=== PATIENT | female | born 1960 | race Caucasian/White ===

== ENCOUNTER 2016-07-11 15:40 | Emergency (ER) | payer OTHER ==
--- NOTE | 2016-07-11 15:51 | ED ---
General Adult HPI - General Stated complaint: Hypotension Time Seen by Provider: 07/11/16 15:43 Source: RN notes reviewed, old records reviewed - History of Present Illness Initial comments: This is a 56-year-old female to the ER for evaluation. This patient presents today for evaluation of syncopal event. Patient felt weak and dizzy lightheaded and passed out. Patient has a medical history of high blood pressure.. No other medical complaints. Patient has donated plasma 3 times in last 2 weeks. Patient did donate plasma 2 hours prior to arrival. Patient states she is a little lightheaded after donating but otherwise felt fine, has been drinking and hydrating appropriately especially overnight. Patient states she has no chest pain or shortness of breath to still feels a little dizzy at this time. No headaches. No injury from syncope event - Related Data Home Medications Medication Instructions Recorded Confirmed Atenolol 25 mg PO QAM 01/19/15 07/11/16 Lisinopril-Hctz 20-12.5 mg 1 tab PO QAM 01/19/15 07/11/16 [Zestoretic 20-12.5] Sertraline HCl [Zoloft] 200 mg PO QAM 01/19/15 07/11/16 traZODone HCL 50 mg PO QAM 01/19/15 07/11/16 Aspirin EC [Ecotrin Low Dose] 81 mg PO QAM 07/11/16 07/11/16 Calcium Carbonate/Vitamin D3 1 tab PO DAILY 07/11/16 07/11/16 [Calcium 600-Vit D3 400 Tablet] Fluticasone Nasal Imboden [Flonase 2 spr EA NOSTRIL DAILY PRN 07/11/16 07/11/16 Nasal Imboden] Gabapentin [Neurontin] 400 mg PO QID 07/11/16 07/11/16 Ibuprofen [Motrin] 600 mg PO TID PRN 07/11/16 07/11/16 Loratadine [Claritin] 10 mg PO DAILY PRN 07/11/16 07/11/16 Multivitamins, Thera [Multivitamin 1 tab PO DAILY 07/11/16 07/11/16 (formulary)] traZODone HCL 100 mg PO HS 07/11/16 07/11/16 Allergies Allergy/AdvReac Type Severity Reaction Status Date / Time atropine sulfate Allergy Rash/Hives Verified 07/11/16 16:16 [From Lomotil] diphenoxylate HCl Allergy Rash/Hives Verified 07/11/16 16:16 [From Lomotil] Review of Systems ROS Statement: Those systems with pertinent positive or pertinent negative responses have been documented in the HPI. ROS Other: All systems not noted in ROS Statement are negative. Past Medical History Past Medical History: Hypertension Additional Past Medical History / Comment(s): pulmonary htn, depression History of Any Multi-Drug Resistant Organisms: None Reported Past Surgical History: Section Past Psychological History: Anxiety, Depression Smoking Status: Current every day smoker Past Alcohol Use History: None Reported Past Drug Use History: None Reported General Exam General appearance: alert, in no apparent distress Head exam: Present: atraumatic, normocephalic, normal inspection Eye exam: Present: normal appearance, PERRL, EOMI. Absent: scleral icterus, conjunctival injection, periorbital swelling ENT exam: Present: normal exam, mucous membranes moist Neck exam: Present: normal inspection. Absent: tenderness, meningismus, lymphadenopathy Respiratory exam: Present: normal lung sounds bilaterally. Absent: respiratory distress, wheezes, rales, rhonchi, stridor Cardiovascular Exam: Present: regular rate, normal rhythm, normal heart sounds. Absent: systolic murmur, diastolic murmur, rubs, gallop, clicks GI/Abdominal exam: Present: soft, normal bowel sounds. Absent: distended, tenderness, guarding, rebound, rigid Extremities exam: Present: normal inspection, full ROM, normal capillary refill. Absent: tenderness, pedal edema, joint swelling, calf tenderness Back exam: Present: normal inspection Neurological exam: Present: alert, oriented X3, CN II-XII intact Psychiatric exam: Present: normal affect, normal mood Skin exam: Present: warm, dry, intact, normal color. Absent: rash Course Vital Signs 07/11/16 07/11/16 15:48 16:46 Temperature 97.9 F 98.2 F Pulse Rate 58 L 62 Respiratory 18 16 Rate Blood Pressure 101/59 103/59 O2 Sat by Pulse 98 95 Oximetry EKG Findings - EKG Comments: EKG Findings:: The EKG shows sinus rhythm rate of 60, ND 120, QRS I4, QTC 448 Medical Decision Making - Medical Decision Making 56 female here for evaluation of syncopal event. No chest patient was of breath or bowel pain. Patient did donate plasma 2 in the last 2 weeks. He felt lightheaded prior to passing out. At this time feels normal. Patient can be discharged home - Lab Data Lab Results 07/11/16 Range/Units 15:55 POC Glucose (mg/dL) 191 H (75-99) mg/dL POC Glu Assistant To [employer] Grace De Los Santos Disposition Clinical Impression: Orthostatic hypotension, Dehydration Disposition: HOME SELF-CARE Condition: Good Instructions: Dizziness (ED) Referrals: Jade Lockett MD [Primary Care Provider] - 1-2 days
[2016-07-11 16:26] LABS: Glucose,Whole Blood 191 mg/dL (75-99)
[2016-07-11 16:46] VITALS: BP 103/59; PULSE 62; RESP 16; TEMP 98.2
== END 2016-07-11 16:48 | disposition home or self-care (01) ==
LOC: EC 15:40
DX: I95.1 Orthostatic hypotension (principal); E86.0 Dehydration; I10 Essential (primary) hypertension; F32.9 Major depressive disorder, single episode, unspecified; F17.200 Nicotine dependence, unspecified, uncomplicated; Z88.8 Allergy status to other drugs, medicaments and biological substances; Z79.82 Long term (current) use of aspirin; Z79.899 Other long term (current) drug therapy
CPT/HCPCS: 36415; 93005; 99285

== ENCOUNTER → 2016-10-26 | Outpatient (CLI) | payer OTHER ==
[2016-10-26 11:37] LABS: CH 34.2; CHCM 36.8; HCT 38.1 % (34.0-46.0); HDW 2.37; HGB 13.9 gm/dL (11.4-16.0); MCH 34.1 pg (25.0-35.0); MCHC 36.6 g/dL (31.0-37.0); MCV 93.4 fL (80.0-100.0); Mean Platelet Volume 7.3; RBC 4.08 m/uL (3.80-5.40); RDW 13.2 % (11.5-15.5); WBC 6.3 k/uL (3.8-10.6)
[2016-10-26 11:55] LABS: Glucose 87 mg/dL (74-99); Total Protein 6.1 g/dL (6.3-8.2)
[2016-10-26 11:56] LABS: ALT 27 U/L (9-52); AST 24 U/L (14-36); Alkaline Phosphatase 82 U/L (38-126); Anion Gap 7 mmol/L; Blood Urea Nitrogen 4 mg/dL (7-17); Calcium 8.9 mg/dL (8.4-10.2); Carbon Dioxide 26 mmol/L (22-30); Chloride 93 mmol/L (98-107); Cholesterol 169 mg/dL (<200); HDL Cholesterol 39 mg/dL (40-60); Non-African American GFR(MDRD) >60 (>60 ml/min/1.73 sqM); Potassium 3.7 mmol/L (3.5-5.1); Sodium 126 mmol/L (137-145); Total Bilirubin 0.3 mg/dL (0.2-1.3)
== END | disposition home or self-care (01) ==
LOC: LABWHC1 11:09
PROVIDERS: ATTEND Psychiatry & Neurology Psychiatry
DX: E78.5 Hyperlipidemia, unspecified (principal); E03.9 Hypothyroidism, unspecified; I10 Essential (primary) hypertension
CPT/HCPCS: 36415; 80053; 80061; 84439; 84443; 85027

== ENCOUNTER → 2017-01-06 | Outpatient (CLI) | payer OTHER ==
[2017-01-06 13:29] LABS: Potassium 4.4 mmol/L (3.5-5.1)
== END | disposition home or self-care (01) ==
LOC: LABWHC1 12:25
PROVIDERS: ATTEND Psychiatry & Neurology Psychiatry
DX: E87.8 Other disorders of electrolyte and fluid balance, not elsewhere classified (principal)
CPT/HCPCS: 36415; 80051

== ENCOUNTER → 2017-03-25 | Outpatient (CLI) | payer OTHER ==
[2017-03-25 13:58] LABS: Anion Gap 9 mmol/L; Blood Urea Nitrogen 8 mg/dL (7-17); Calcium 9.5 mg/dL (8.4-10.2); Carbon Dioxide 28 mmol/L (22-30); Chloride 93 mmol/L (98-107); Glucose 91 mg/dL (74-99); Potassium 4.2 mmol/L (3.5-5.1); Sodium 130 mmol/L (137-145)
== END | disposition home or self-care (01) ==
LOC: LABWHC1 13:28
PROVIDERS: ATTEND Psychiatry & Neurology Psychiatry
DX: F31.60 Bipolar disorder, current episode mixed, unspecified (principal); Z79.899 Other long term (current) drug therapy
CPT/HCPCS: 36415; 80048

== ENCOUNTER 2017-07-13 11:03 | Inpatient (IN) | payer OTHER ==
[2017-07-13] MEDS ORDERED: DIPH,PERTUS(ACELL)TETVAC-LF 0.5 ML VIAL IM ONE (11:20)
--- NOTE | 2017-07-13 11:39 | ED ---
Dizziness HPI - General Chief Complaint: Dizziness Stated Complaint: Fall Time Seen by Provider: 07/13/17 11:03 Source: patient, RN notes reviewed Mode of arrival: EMS Limitations: no limitations - History of Present Illness Initial Comments: This is a 57-year-old female who states she was walking her Chihuahua when she became dizzy and tripped over the lesion. She fell on the ground struck her face left wrist she had no loss of consciousness but she complains some facial pain and now some posterior neck pain. She was brought in by EMS with a cervical collar no backboard. She denies any back pain abdominal pain pain to the other extremities except for the left wrist where she has an abrasion but full range of motion and she denies any bony tenderness. She has a history of pulmonary hypertension. She was noted have a glucose of 120+ a single PVC and her monitor. She does states she did not eat breakfast this morning MD Complaint: dizziness, other - Related Data Home Medications Medication Instructions Recorded Confirmed Atenolol 25 mg PO QAM 01/19/15 07/13/17 Lisinopril-Hctz 20-12.5 mg 1 tab PO QAM 01/19/15 07/13/17 [Zestoretic 20-12.5] Sertraline HCl [Zoloft] 200 mg PO QAM 01/19/15 07/13/17 Aspirin EC [Ecotrin Low Dose] 81 mg PO DAILY 07/11/16 07/13/17 Loratadine [Claritin] 10 mg PO DAILY PRN 07/11/16 07/13/17 traZODone HCL 100 mg PO HS 07/11/16 07/13/17 Ascorbic Acid [Vitamin C] 1,000 mg PO DAILY 07/13/17 07/13/17 Betamethasone Dipropionate 1 applic TOPICAL DAILY PRN 07/13/17 07/13/17 [Betamethasone Dipropionate 0.05%] Citalopram Hydrobromide [CeleXA] 40 mg PO DAILY 07/13/17 07/13/17 Diazepam [Valium] 5 mg PO BID@1200,2100 07/13/17 07/13/17 Ferrous Sulfate [Feosol] 325 mg PO DAILY 07/13/17 07/13/17 Gabapentin [Neurontin] 800 mg PO TID 07/13/17 07/13/17 Ibuprofen [Motrin] 800 mg PO TID PRN 07/13/17 07/13/17 Lurasidone [Latuda] 80 mg PO DAILY 07/13/17 07/13/17 Allergies Allergy/AdvReac Type Severity Reaction Status Date / Time atropine sulfate Allergy Rash/Hives Verified 07/13/17 12:18 [From Lomotil] diphenoxylate HCl Allergy Rash/Hives Verified 07/13/17 12:18 [From Lomotil] Review of Systems ROS Statement: Those systems with pertinent positive or pertinent negative responses have been documented in the HPI. ROS Other: All systems not noted in ROS Statement are negative. Past Medical History Past Medical History: Hypertension Additional Past Medical History / Comment(s): pulmonary htn, depression History of Any Multi-Drug Resistant Organisms: None Reported Past Surgical History: Section Past Psychological History: Anxiety, Depression Smoking Status: Current every day smoker Past Alcohol Use History: None Reported Past Drug Use History: None Reported General Exam - General Exam Comments Initial Comments: This is a well-developed well-nourished awake alert oriented 3 female she has a [place] Coma Scale of 15 Limitations: no limitations General appearance: alert, in no apparent distress Head exam: Present: normocephalic, other (Abrasion seen over the right eyebrow no foreign body no step-off or crepitation is some ecchymosis to the lateral inferior aspect of the right orbit. No step-off or crepitation) Eye exam: Present: normal appearance, PERRL, EOMI. Absent: scleral icterus, conjunctival injection, periorbital swelling ENT exam: Present: normal exam, mucous membranes moist Neck exam: Present: normal inspection. Absent: tenderness, meningismus, lymphadenopathy Respiratory exam: Present: normal lung sounds bilaterally. Absent: respiratory distress, wheezes, rales, rhonchi, stridor Cardiovascular Exam: Present: regular rate, normal rhythm, normal heart sounds. Absent: systolic murmur, diastolic murmur, rubs, gallop, clicks GI/Abdominal exam: Present: soft, normal bowel sounds. Absent: distended, tenderness, guarding, rebound, rigid Extremities exam: Present: full ROM, normal capillary refill, other (Abrasion seen over the dorsal left wrist lateral aspect no step-off or crepitation no snuffbox tenderness no neurovascular deficits pulses are equal bilaterally.). Absent: tenderness, pedal edema, joint swelling, calf tenderness Back exam: Present: normal inspection Neurological exam: Present: alert, oriented X3, CN II-XII intact Psychiatric exam: Present: normal affect, normal mood Skin exam: Present: warm, dry, intact, normal color. Absent: rash Course Vital Signs 07/13/17 07/13/17 11:20 12:59 Temperature 97.1 F L Pulse Rate 64 59 L Respiratory 18 18 Rate Blood Pressure 171/99 147/57 O2 Sat by Pulse 98 97 Oximetry - Reevaluation(s) Reevaluation #1: 07/13/17 13:56 Reevaluation patient reveals no change she is awake alert. EKG Findings - EKG Results: EKG: interpreted by PRATEEK, sinus rhythm (Sinus rhythm with occasional PVCs rate was 64. Interval 156 QRS duration 92 QT/QTC 464/478 possible left atrial enlargement.) Medical Decision Making - Medical Decision Making I did discuss findings with the patient she does demonstrate a sodium of 109 she does states she has a history of low sodium and has been taking extra salt as per her doctor's recommendation. She will be admitted I discussed the case with Dr. Holcomb. Nephrology will be consulted. - Lab Data Result diagrams: 07/13/17 11:35 07/13/17 11:35 Lab Results 07/13/17 07/13/17 07/13/17 Range/Units 11:35 11:35 11:35 WBC 7.6 (3.8-10.6) k/uL RBC 4.31 (3.80-5.40) m/uL Hgb 14.3 (11.4-16.0) gm/dL Hct 38.6 (34.0-46.0) % MCV 89.4 (80.0-100.0) fL MCH 33.2 (25.0-35.0) pg MCHC 37.2 H (31.0-37.0) g/dL RDW 12.2 (11.5-15.5) % Plt Count 221 (150-450) k/uL Neutrophils % 80 % Lymphocytes % 13 % Monocytes % 6 % Eosinophils % 1 % Basophils % 0 % Neutrophils # 6.0 (1.3-7.7) k/uL Lymphocytes # 1.0 (1.0-4.8) k/uL Monocytes # 0.4 (0-1.0) k/uL Eosinophils # 0.1 (0-0.7) k/uL Basophils # 0.0 (0-0.2) k/uL Sodium 109 L* (137-145) mmol/L Potassium 3.3 L (3.5-5.1) mmol/L Chloride 78 L* (98-107) mmol/L Carbon Dioxide 21 L (22-30) mmol/L Anion Gap 10 mmol/L BUN 4 L (7-17) mg/dL Creatinine 0.52 (0.52-1.04) mg/dL Est GFR (CKD-EPI)AfAm >90 (>60 ml/min/1.73 sqM) Est GFR (CKD-EPI)NonAf >90 (>60 ml/min/1.73 sqM) Glucose 101 H (74-99) mg/dL Calcium 8.7 (8.4-10.2) mg/dL Magnesium 1.2 L (1.6-2.3) mg/dL Total Bilirubin 0.6 (0.2-1.3) mg/dL AST 35 (14-36) U/L ALT 33 (9-52) U/L Alkaline Phosphatase 65 (38-126) U/L Total Creatine Kinase 409 H (30-135) U/L CK-MB (CK-2) 3.5 H* (0.0-2.4) ng/mL CK-MB (CK-2) Rel Index 0.9 Troponin I <0.012 (0.000-0.034) ng/mL Total Protein 6.4 (6.3-8.2) g/dL Albumin 4.0 (3.5-5.0) g/dL - Radiology Data Radiology results: report reviewed (I did review the imaging and reports no acute findings.), image reviewed Disposition Clinical Impression: Hyponatremia syndrome, Dizziness, Fall, Facial abrasion, Abrasion of hand Disposition: ADMITTED IP TO THIS [facility] Condition: Stable Referrals: Jade Lockett MD [Primary Care Provider] - 1-2 days
[2017-07-13 12:09] LABS: Basophils % (A) 0 %; Eosinophils # (A) 0.1 k/uL (0-0.7); Eosinophils % (A) 1 %; HCT 38.6 % (34.0-46.0); HGB 14.3 gm/dL (11.4-16.0); Lymphocytes % (A) 13 %; MCH 33.2 pg (25.0-35.0); MCHC 37.2 g/dL (31.0-37.0); MCV 89.4 fL (80.0-100.0); Mean Platelet Volume 6.6; Monocytes # (A) 0.4 k/uL (0-1.0); Monocytes % (A) 6 %; Neutrophils % (A) 80 %; Platelet Count 221 k/uL (150-450); RBC 4.31 m/uL (3.80-5.40); RDW 12.2 % (11.5-15.5); WBC 7.6 k/uL (3.8-10.6)
--- NOTE | 2017-07-13 12:23 | CT ---
EXAMINATION TYPE: CT brain cspine wo con DATE OF EXAM: 07/13/2017 COMPARISON: NONE HISTORY: Fall CT DLP: Brain (1064.30) and C-spine (473.70) mGycm, Automated exposure control for dose reduction was used. CONTRAST: None CT of the brain is performed utilizing 3 mm thick sections through the posterior fossa and 3 mm thick sections through the remaining calvarium. Study is performed within 24 hours of arrival to the hospital. No abnormal hyperdensity is present to suggest an acute intracranial hemorrhage. No mass lesion is evident. No acute infarcts are evident. Ventricles and sulci are appropriate for the patient age. Paranasal sinuses and mastoid air cells within the [id number] are clear. IMPRESSIONS: 1. No acute intracranial process. CT cervical spine. COMPARISON: None CT of the cervical spine is performed in the axial plane at 2 mm thick sections. Reconstructed image s in the coronal, and sagittal plane are reviewed on the computer. No acute fractures are evident. Vertebral body alignment is normal. Mild diffuse narrowing of disc height is present within the mid to lower cervical spine. Vertebral body heights are preserved. No spinal canal stenosis is evident. Uncovertebral joint hypertrophy is contributing to some foraminal narrowing with moderate to severe r ight foraminal stenosis C4-5 moderate foraminal narrowing C5-6. IMPRESSIONS: 1. Degenerative disc changes and uncovertebral joint hypertrophy. 2. No acute osseous abnormality.
[2017-07-13 12:27] LABS: ALT 33 U/L (9-52); AST 35 U/L (14-36); Alkaline Phosphatase 65 U/L (38-126); Anion Gap 10 mmol/L; Blood Urea Nitrogen 4 mg/dL (7-17); Calcium 8.7 mg/dL (8.4-10.2); Carbon Dioxide 21 mmol/L (22-30); Glucose 101 mg/dL (74-99); Magnesium 1.2 mg/dL (1.6-2.3); Potassium 3.3 mmol/L (3.5-5.1); Total Bilirubin 0.6 mg/dL (0.2-1.3); Total Protein 6.4 g/dL (6.3-8.2)
[2017-07-13 12:30] LABS: Chloride 78 mmol/L (98-107); Sodium 109 mmol/L (137-145)
[2017-07-13 12:38] LABS: Creatine Kinase 409 U/L (30-135)
[2017-07-13 12:51] LABS: Troponin I <0.012 ng/mL (0.000-0.034)
[2017-07-13 13:02] LABS: Creatine Kinase MB 3.5 ng/mL (0.0-2.4)
--- NOTE | 2017-07-13 13:21 | XR ---
EXAMINATION TYPE: XR chest 2V DATE OF EXAM: 07/13/2017 COMPARISON: NONE TECHNIQUE: PA and lateral views submitted. HISTORY: Cough FINDINGS: The lungs are clear and there is no pneumothorax, pleural effusion, or focal pneumonia. Hypertrophi c and degenerative changes of the spine. No overt failure. Subsegmental linear changes left lung base . IMPRESSION: 1. Left basilar atelectasis favored over infiltrate correlate clinically.
[2017-07-13] MEDS ORDERED: ACETAMINOPHEN TAB 325 MG TAB PO PRN (13:58)
[2017-07-13] MEDS ORDERED: NALOXONE 0.4 MG/ML 1 ML VIAL IV PRN (13:58)
[2017-07-13] MEDS ORDERED: SODIUM CHLORIDE 0.9% 1,000 ML IV SCH (14:00)
[2017-07-13] MEDS ORDERED: LORATADINE 10 MG TAB PO PRN (14:01)
[2017-07-13] MEDS ORDERED: BETAMETHASONE DIPROPIONATE 0.05% CREAM 15 GM TUBE TOPICAL PRN (14:01)
[2017-07-13] MEDS ORDERED: DIAZEPAM 5 MG TAB PO STA (14:17)
[2017-07-13 14:40] LABS: Appearance,Urine Clear (Clear); Bilirubin,Urine Negative (Negative); Blood,Urine Trace (Negative); Color,Urine Colorless; Glucose,Urine (UA) Negative (Negative); Ketones,Urine Negative (Negative); Leukocyte Esterase,Urine Negative (Negative); Nitrite,Urine Negative (Negative); PH, Urine 6.5 (5.0-8.0); Protein,Urine Negative (Negative); Specific Gravity,Urine 1.002 (1.001-1.035); Urobilinogen,Urine <2.0 mg/dL (<2.0)
[2017-07-13 15:50] LABS: Glucose,Whole Blood 134 mg/dL (75-99)
[2017-07-13] MEDS ORDERED: Potassium Replacement Protocol 1 EACH MISC MISCELLANE PRN ×2 (15:55→21:10)
[2017-07-13] MEDS ORDERED: Magnesium Replacement Protocol 1 EACH MISC MISCELLANE PRN (15:55)
[2017-07-13 16:10] VITALS: BMI 28.0
[2017-07-13] MEDS: MAGNESIUM SULFATE-D5W PMX 1 GM in DEXTROSE/WATER 1 100ML.BAG IVPB SCH ×3 (16:21→19:08)
[2017-07-13] MEDS: GABAPENTIN 400 MG CAP PO SCH ×2 (16:22→21:52)
[2017-07-13] MEDS: POTASSIUM CHLORIDE ER 20 MEQ TAB.ER PO SCH ×2 (16:22→18:06)
[2017-07-13] MEDS: IBUPROFEN 800 MG TAB PO PRN (16:36)
[2017-07-13] MEDS ORDERED: Phosphorus Replacement Protoco 1 EACH MISC MISCELLANE PRN (17:03)
[2017-07-13] MEDS: NICOTINE 14MG/24HR PATCH TRANSDERM SCH (18:06)
[2017-07-13] MEDS: DEXTROSE 5% IN WATER 1,000 ML IV SCH (18:06)
[2017-07-13 20:41] LABS: Potassium 3.6 mmol/L (3.5-5.1)
[2017-07-13] MEDS: traZODone HCL 100 MG TAB PO SCH (21:07)
[2017-07-13] MEDS: DIAZEPAM 5 MG TAB PO SCH (21:51)
[2017-07-13] MEDS ORDERED: POTASSIUM CHLORIDE ER 20 MEQ TAB.ER PO SCH (22:00)
[2017-07-14] MEDS: HEPARIN SODIUM,PORCINE 5,000 UNIT/ML 1 ML VIAL SQ SCH ×4 (00:44→23:21)
[2017-07-14 01:17] LABS: Hemoglobin A1C 5.3 % (4.0-6.0)
--- NOTE | 2017-07-14 01:26 | P.HPIM ---
History of Present Illness H&P Date: 07/13/17 Chief Complaint: Dizziness and syncope Patient is a 57-year-old female with a known history of hypertension, pulmonary hypertension, anxiety/depression was brought to the hospital status post fall and head injury. Patient was apparently walking her dog and about 2 weeks at home when she suddenly felt dizzy and had a syncopal episode. She fell on the ground and struck her head on the walkway. She denied any loss of consciousness. Patient does have small laceration on the right eyebrow and redness. Patient does have some facial pain and posterior neck pain that she came to the hospital patient was improved. Patient had CT head and CT cervical spine which showed no osseous acute abnormality. Patient apparently has been working in the yard last few days. Patient has been drinking free water. Patient does take hydrochlorothiazide/lisinopril at home for blood pressure control which she has been taking for a long time. Patient denied any complaints of fever or chills. No recent illnesses. No nausea vomiting or diarrhea. Denied any chest pain or shortness of breath. Patient does have a history of pulmonary hypertension. Patient did not eat her breakfast this morning otherwise. Patient was found have sodium level of 119 on admission. Serum osmolality 229. Review of Systems Constitutional: Patient denies any fever or chills . No generalized weakness or weight loss. Abdomen: Patient denied nausea vomiting and diarrhea and abdominal pain. Cardiovascular: Patient denies any chest pain or short of breath no palpitations. Respiratory: patient denied any cough is from production. No shortness of breath Neurologic: Patient denied any numbness or tingling headache. Musculoskeletal: Patient denies any complaints of joint swelling or deformity. Skin: Negative Psychiatric: Negative Endocrine: No heat or cold intolerance. No recent weight gain. Genitourinary: No dysuria or hematuria. All other 14 point ROS negative except the above Past Medical History Past Medical History: Hypertension Additional Past Medical History / Comment(s): pulmonary htn, generalized anxiety disorder History of Any Multi-Drug Resistant Organisms: None Reported Past Surgical History: Section Past Anesthesia/Blood Transfusion Reactions: No Reported Reaction Past Psychological History: Anxiety, Depression Additional Psychological History / Comment(s): Generalized anxiety disorder Smoking Status: Current every day smoker Past Alcohol Use History: None Reported Past Drug Use History: None Reported - Past Family History Mother Family Medical History: Hypertension Additional Family Medical History / Comment(s): lived to 84, " from emphysema" Father Family Medical History: CVA/TIA, Dementia, Dialysis, Hypertension Additional Family Medical History / Comment(s): lived to be 86, hypotension Medications and Allergies Home Medications Medication Instructions Recorded Confirmed Type Atenolol 25 mg PO QAM 01/19/15 07/13/17 History Lisinopril-Hctz 20-12.5 mg 1 tab PO QAM 01/19/15 07/13/17 History [Zestoretic 20-12.5] Sertraline HCl [Zoloft] 200 mg PO QAM 01/19/15 07/13/17 History Aspirin EC [Ecotrin Low Dose] 81 mg PO DAILY 07/11/16 07/13/17 History Loratadine [Claritin] 10 mg PO DAILY PRN 07/11/16 07/13/17 History traZODone HCL 100 mg PO HS 07/11/16 07/13/17 History Ascorbic Acid [Vitamin C] 1,000 mg PO DAILY 07/13/17 07/13/17 History Betamethasone Dipropionate 1 applic TOPICAL DAILY PRN 07/13/17 07/13/17 History [Betamethasone Dipropionate 0.05%] Citalopram Hydrobromide [CeleXA] 40 mg PO DAILY 07/13/17 07/13/17 History Diazepam [Valium] 5 mg PO BID@1200,2100 07/13/17 07/13/17 History Ferrous Sulfate [Feosol] 325 mg PO DAILY 07/13/17 07/13/17 History Gabapentin [Neurontin] 800 mg PO TID 07/13/17 07/13/17 History Ibuprofen [Motrin] 800 mg PO TID PRN 07/13/17 07/13/17 History Lurasidone [Latuda] 80 mg PO DAILY 07/13/17 07/13/17 History Allergies Allergy/AdvReac Type Severity Reaction Status Date / Time atropine sulfate Allergy Rash/Hives Verified 07/13/17 12:18 [From Lomotil] diphenoxylate HCl Allergy Rash/Hives Verified 07/13/17 12:18 [From Lomotil] Physical Exam Vitals: Vital Signs Temp Pulse Resp BP Pulse Ox 07/13/17 20:00 98.2 F 56 L 15 121/72 95 07/13/17 19:00 67 19 118/69 97 07/13/17 18:00 61 16 129/83 96 07/13/17 17:00 58 L 27 H 112/66 99 07/13/17 16:00 98.8 F 66 20 124/78 96 07/13/17 15:43 98.1 F 66 18 134/76 98 07/13/17 15:41 96 07/13/17 14:22 61 18 117/64 98 07/13/17 12:59 59 L 18 147/57 97 07/13/17 11:20 97.1 F L 64 18 171/99 98 Intake and Output 07/13/17 07/13/17 07/13/17 06:59 14:59 22:59 Intake Total 650 Output Total 500 Balance 150 Intake: IV 50 Dextrose 5% in Water 1, 50 000 ml @ 50 mls/hr IV . Q20H JAMEL Rx#:[id number] Intake, IV Titration 600 Amount Dextrose 5% in Water 1, 100 000 ml @ 50 mls/hr IV . Q20H JAMEL Rx#:[id number] Magnesium Sulfate-D5w Pmx 300 1 gm In Dextrose/Water 1 100ml.bag @ 100 mls/hr IVPB Q1H JAMEL Rx#: [id number] Sodium Chloride 0.9% 1, 200 000 ml @ 100 mls/hr IV . Q10H JAMEL Rx#:[id number] Output: Urine 500 Other: Voiding Method Bedside Commode # Voids 1 Weight 69.6 kg PHYSICAL EXAMINATION: Patient is lying in the bed comfortably, no acute distress, awake alert and oriented.. HEENT: Normocephalic. Neck is supple. Pupils reactive. Nostrils clear. Oral cavity is moist. Ears reveal no drainage. Bruise over the eyebrow and redness with small laceration Neck reveals no JVD, carotid bruits, or thyromegaly. CHEST EXAMINATION: Trachea is central. Symmetrical expansion. Lung lobato clear to auscultation and percussion. CARDIAC: Normal S1, S2 with no gallops. No murmurs ABDOMEN: Soft. Bowel sounds normal. No organomegaly. No abdominal bruits. Extremities: reveal no edema. No clubbing or cyanosis Neurologically awake, alert, oriented x3 with well-coordinated movements. No focal deficits noted Skin: No rash or skin lesions. Psychiatric: Cooperative. Nonsuicidal Musculoskeletal: No joint swelling or deformity. Normal range of motion. Results CBC & Chem 7: 07/13/17 11:35 07/13/17 20:10 Labs: Abnormal Lab Results - Last 24 Hours (Table) 07/13/17 07/13/17 07/13/17 Range/Units 11:35 11:35 11:35 MCHC 37.2 H (31.0-37.0) g/dL Sodium 109 L* (137-145) mmol/L Potassium 3.3 L (3.5-5.1) mmol/L Chloride 78 L* (98-107) mmol/L Carbon Dioxide 21 L (22-30) mmol/L BUN 4 L (7-17) mg/dL Glucose 101 H (74-99) mg/dL POC Glucose (mg/dL) (75-99) mg/dL Osmolality (280-301) mosm/kg Magnesium 1.2 L (1.6-2.3) mg/dL Total Creatine Kinase 409 H (30-135) U/L CK-MB (CK-2) 3.5 H* (0.0-2.4) ng/mL Urine Blood (Negative) Ur Random Sodium (30-90) mmol/L 07/13/17 07/13/17 07/13/17 Range/Units 11:35 13:59 13:59 MCHC (31.0-37.0) g/dL Sodium (137-145) mmol/L Potassium (3.5-5.1) mmol/L Chloride (98-107) mmol/L Carbon Dioxide (22-30) mmol/L BUN (7-17) mg/dL Glucose (74-99) mg/dL POC Glucose (mg/dL) (75-99) mg/dL Osmolality 229 L* (280-301) mosm/kg Magnesium (1.6-2.3) mg/dL Total Creatine Kinase (30-135) U/L CK-MB (CK-2) (0.0-2.4) ng/mL Urine Blood Trace H (Negative) Ur Random Sodium 21 L (30-90) mmol/L 07/13/17 07/13/17 07/13/17 Range/Units 15:48 17:05 20:10 MCHC (31.0-37.0) g/dL Sodium 118 L* 119 L* (137-145) mmol/L Potassium (3.5-5.1) mmol/L Chloride 86 L (98-107) mmol/L Carbon Dioxide (22-30) mmol/L BUN (7-17) mg/dL Glucose (74-99) mg/dL POC Glucose (mg/dL) 134 H (75-99) mg/dL Osmolality (280-301) mosm/kg Magnesium (1.6-2.3) mg/dL Total Creatine Kinase (30-135) U/L CK-MB (CK-2) (0.0-2.4) ng/mL Urine Blood (Negative) Ur Random Sodium (30-90) mmol/L Thrombosis Risk Factor Assmnt - DVT/VTE Prophylaxis DVT/VTE Prophylaxis: Pharmacologic Prophylaxis ordered - Choose All That Apply Each Factor Represents 1 point: Age 41-60 years, Obesity (BMI >25) Thrombosis Risk Factor Assessment Total Risk Factor Score: 2 Thrombosis Risk Factor Assessment Level: Low Risk Assessment and Plan Assessment: Severe hyponatremia likely due to hydrochlorothiazide and decreased solute intake Hypoosmolar hyponatremia Hypokalemia and hyponatremia and hypomagnesemia Hypertension. Currently hypotensive Generalized anxiety disorder Pulmonary hypertension DVT prophylaxis Plan: Patient will be continued on IV hydration with normal saline and correct sodium not more than 12 mEq in 24 hours. We will hold hydrochlorothiazide and other blood pressure medications due to hypotension and follow closely. Nephrology was consulted. Further recommendations based on the clinical course. Patient is improving symptomatically at this time. No complaints of dizziness or lightheadedness. Time with Patient: Greater than 30
[2017-07-14 03:29] LABS: Basophils % (A) 0 %; Eosinophils # (A) 0.2 k/uL (0-0.7); Eosinophils % (A) 4 %; HCT 37.1 % (34.0-46.0); HGB 13.4 gm/dL (11.4-16.0); Lymphocytes # (A) 1.5 k/uL (1.0-4.8); Lymphocytes % (A) 36 %; MCH 32.4 pg (25.0-35.0); MCV 90.1 fL (80.0-100.0); Mean Platelet Volume 6.4; Monocytes # (A) 0.3 k/uL (0-1.0); Monocytes % (A) 7 %; Neutrophils # (A) 2.1 k/uL (1.3-7.7); Neutrophils % (A) 51 %; Platelet Count 217 k/uL (150-450); RBC 4.12 m/uL (3.80-5.40); RDW 12.8 % (11.5-15.5); WBC 4.1 k/uL (3.8-10.6)
[2017-07-14 03:43] LABS: Anion Gap 6 mmol/L; Blood Urea Nitrogen 10 mg/dL (7-17); Calcium 8.7 mg/dL (8.4-10.2); Carbon Dioxide 27 mmol/L (22-30); Chloride 92 mmol/L (98-107); Glucose 108 mg/dL (74-99); Magnesium 2.3 mg/dL (1.6-2.3); Phosphorus 3.1 mg/dL (2.5-4.5); Potassium 3.9 mmol/L (3.5-5.1); Sodium 125 mmol/L (137-145)
[2017-07-14] MEDS ORDERED: DESMOPRESSIN ACETATE 4 MCG/ML VIAL (MDV) IV ONE (05:00)
[2017-07-14] MEDS: IBUPROFEN 800 MG TAB PO PRN (05:16)
[2017-07-14] MEDS: DEXTROSE 5% IN WATER 1,000 ML IV SCH ×2 (05:21→16:16)
[2017-07-14] MEDS ORDERED: Potassium Replacement Protocol 1 EACH MISC MISCELLANE PRN (07:05)
[2017-07-14] MEDS: PANTOPRAZOLE 40 MG TABLET PO SCH (07:35)
[2017-07-14] MEDS ORDERED: POTASSIUM CHLORIDE ER 20 MEQ TAB.ER PO SCH (08:00)
[2017-07-14] MEDS ORDERED: LISINOPRIL-HCTZ 20-12.5 MG 1 EACH TAB PO SCH (09:00)
[2017-07-14] MEDS: ASCORBIC ACID 500 MG TAB PO SCH (09:44)
[2017-07-14] MEDS: FERROUS SULFATE 325 MG TAB PO SCH (09:44)
[2017-07-14] MEDS: ASPIRIN 81 MG PO SCH (09:44)
[2017-07-14] MEDS: GABAPENTIN 400 MG CAP PO SCH ×3 (09:44→20:56)
[2017-07-14] MEDS: CITALOPRAM HYDROBROMIDE 20 MG TAB PO SCH (09:44)
[2017-07-14] MEDS: NICOTINE 14MG/24HR PATCH TRANSDERM SCH (09:45)
[2017-07-14] MEDS: LURASIDONE 80 MG TAB PO SCH (09:45)
[2017-07-14] MEDS: SERTRALINE 100 MG TAB PO SCH (09:45)
--- NOTE | 2017-07-14 10:19 | P.CNPUL ---
History of Present Illness Consult date: 07/14/17 Reason for consult: other (Profound hyponatremia) Chief complaint: Dizziness and syncope History of present illness: This is a 57-year-old female with history of hypertension, generalized anxiety disorder, pulmonary hypertension, patient was brought into the hospital after a fall and head injury. Patient was walking her dog, and she suddenly felt dizzy , and passed out, had a syncopal episode. Fell to the ground, and struck her head on the walkway. Patient denies any loss of consciousness. She sustained a small laceration on the right eyebrow and some redness. Seen in the ER, patient had full workup which came back negative and nondiagnostic including his CT of the head and cervical spine. Workup in the ER revealed a low sodium of 109. Patient has no previous history of underlying malignancy. She is a smoker, and her chest x-ray is relatively unremarkable. Patient is on diuretics in the form of hydrochlorothiazide with the Cipro for hypertension. She has been drinking almost 10 glasses of water every day for a long time. Her serum sodium was low, serum osmolality was low, and urine osmolality was only 70. Serum osmolality was 229, and urine osmolality was 70. This is clearly indicative of dilutional hyponatremia secondary to excessive free water intake, compounded by salt losses from diuretics./Hydrochlorothiazide. Patient was admitted, placed on 0.9 normal saline, significant and relatively rapid correction was noted of the sodium, hence she was switched to D5W overnight, and her last sodium was 125, rechecked after giving her D5W it is 123. Patient seems to be correcting relatively faster than expected. Hence she will remain on D5W for now, and we'll correct the hyponatremia a bit slower. Patient is relatively asymptomatic at present, no headache, no blurred vision, no dizziness , no nausea no vomiting no abdominal pain no diarrhea. Review of Systems 14 point review of systems were obtained, please refer to pertinent positives and negatives as noted in HPI. Past Medical History Past Medical History: Hypertension Additional Past Medical History / Comment(s): pulmonary htn, generalized anxiety disorder History of Any Multi-Drug Resistant Organisms: None Reported Past Surgical History: Section Past Anesthesia/Blood Transfusion Reactions: No Reported Reaction Past Psychological History: Anxiety, Depression Additional Psychological History / Comment(s): Generalized anxiety disorder Smoking Status: Current every day smoker Past Alcohol Use History: None Reported Past Drug Use History: None Reported - Past Family History Mother Family Medical History: Hypertension Additional Family Medical History / Comment(s): lived to 84, " from emphysema" Father Family Medical History: CVA/TIA, Dementia, Dialysis, Hypertension Additional Family Medical History / Comment(s): lived to be 86, hypotension Medications and Allergies Home Medications Medication Instructions Recorded Confirmed Type Atenolol 25 mg PO QAM 01/19/15 07/13/17 History Lisinopril-Hctz 20-12.5 mg 1 tab PO QAM 01/19/15 07/13/17 History [Zestoretic 20-12.5] Sertraline HCl [Zoloft] 200 mg PO QAM 01/19/15 07/13/17 History Aspirin EC [Ecotrin Low Dose] 81 mg PO DAILY 07/11/16 07/13/17 History Loratadine [Claritin] 10 mg PO DAILY PRN 07/11/16 07/13/17 History traZODone HCL 100 mg PO HS 07/11/16 07/13/17 History Ascorbic Acid [Vitamin C] 1,000 mg PO DAILY 07/13/17 07/13/17 History Betamethasone Dipropionate 1 applic TOPICAL DAILY PRN 07/13/17 07/13/17 History [Betamethasone Dipropionate 0.05%] Citalopram Hydrobromide [CeleXA] 40 mg PO DAILY 07/13/17 07/13/17 History Diazepam [Valium] 5 mg PO BID@1200,2100 07/13/17 07/13/17 History Ferrous Sulfate [Feosol] 325 mg PO DAILY 07/13/17 07/13/17 History Gabapentin [Neurontin] 800 mg PO TID 07/13/17 07/13/17 History Ibuprofen [Motrin] 800 mg PO TID PRN 07/13/17 07/13/17 History Lurasidone [Latuda] 80 mg PO DAILY 07/13/17 07/13/17 History Allergies Allergy/AdvReac Type Severity Reaction Status Date / Time atropine sulfate Allergy Rash/Hives Verified 07/13/17 12:18 [From Lomotil] diphenoxylate HCl Allergy Rash/Hives Verified 07/13/17 12:18 [From Lomotil] Physical Exam Vitals: Vital Signs Temp Pulse Resp BP Pulse Ox 07/14/17 09:00 65 19 110/64 98 07/14/17 08:00 99.6 F 58 L 25 H 137/106 97 07/14/17 07:00 50 L 16 125/70 98 07/14/17 06:00 51 L 10 L 120/64 96 07/14/17 05:00 51 L 12 97/51 94 L 07/14/17 04:00 98.6 F 50 L 14 89/48 93 L 07/14/17 03:00 51 L 14 111/66 94 L 07/14/17 02:00 49 L 18 87/58 92 L 07/14/17 01:00 50 L 14 101/61 93 L 07/14/17 00:00 97.9 F 54 L 18 84/52 92 L 07/13/17 23:00 54 L 15 82/51 92 L 07/13/17 22:00 61 15 110/77 93 L 07/13/17 21:00 59 L 14 103/64 96 07/13/17 20:00 98.2 F 56 L 15 121/72 95 07/13/17 19:00 67 19 118/69 97 07/13/17 18:00 61 16 129/83 96 07/13/17 17:00 58 L 27 H 112/66 99 07/13/17 16:00 98.8 F 66 20 124/78 96 07/13/17 15:43 98.1 F 66 18 134/76 98 07/13/17 15:41 96 07/13/17 14:22 61 18 117/64 98 07/13/17 12:59 59 L 18 147/57 97 07/13/17 11:20 97.1 F L 64 18 171/99 98 Intake and Output 07/13/17 07/14/17 07/14/17 22:59 06:59 14:59 Intake Total 800 1050 675 Output Total 500 2600 Balance 300 -1550 675 Intake: IV 200 750 375 Dextrose 5% in Water 1, 200 750 375 000 ml @ 125 mls/hr IV . Q8H JAMEL Rx#:[id number] Intake, IV Titration 600 Amount Dextrose 5% in Water 1, 100 000 ml @ 125 mls/hr IV . Q8H JAMEL Rx#:[id number] Magnesium Sulfate-D5w Pmx 300 1 gm In Dextrose/Water 1 100ml.bag @ 100 mls/hr IVPB Q1H JAMEL Rx#: [id number] Sodium Chloride 0.9% 1, 200 000 ml @ 100 mls/hr IV . Q10H JAMEL Rx#:[id number] Oral 300 300 Output: Urine 500 2600 Other: Voiding Method Bedside Commode Bedside Commode # Voids 1 Weight 76.8 kg Physical Exam: Revealed a 57-year-old female in no distress. Head: Small tiny superficial laceration and redness noted over her right eyebrow. Otherwise unremarkable. HEENT:[Neck is supple.] [No neck masses.] [No thyromegaly.] [No JVD.] Chest: [Clear throughout, no crackles, no rhonchi, no wheezes.] Cardiac Exam: [Normal S1 and S2, no S3 gallop, no murmur.] Abdomen: [Soft, nontender, no megaly, no rebound, no guarding, normal bowel sounds.] Extremities: [No clubbing, no edema, no cyanosis.] Neurological Exam: [No focal neurologic deficit.] Psychiatric: Normal mood affect and mental status examination. Lymphatics: No lymphadenopathy. Results - Laboratory Findings CBC and BMP: 07/14/17 03:17 07/14/17 08:06 Abnormal lab findings: Abnormal Labs 07/13/17 07/13/17 07/13/17 11:35 11:35 11:35 MCHC 37.2 H Sodium 109 L* Potassium 3.3 L Chloride 78 L* Carbon Dioxide 21 L BUN 4 L Glucose 101 H POC Glucose (mg/dL) Osmolality Magnesium 1.2 L Total Creatine Kinase 409 H CK-MB (CK-2) 3.5 H* Urine Blood Ur Random Sodium 07/13/17 07/13/17 07/13/17 11:35 13:59 13:59 MCHC Sodium Potassium Chloride Carbon Dioxide BUN Glucose POC Glucose (mg/dL) Osmolality 229 L* Magnesium Total Creatine Kinase CK-MB (CK-2) Urine Blood Trace H Ur Random Sodium 21 L 07/13/17 07/13/17 07/13/17 15:48 17:05 20:10 MCHC Sodium 118 L* 119 L* Potassium Chloride 86 L Carbon Dioxide BUN Glucose POC Glucose (mg/dL) 134 H Osmolality Magnesium Total Creatine Kinase CK-MB (CK-2) Urine Blood Ur Random Sodium 07/14/17 07/14/17 03:17 08:06 MCHC Sodium 125 L 123 L Potassium Chloride 92 L Carbon Dioxide BUN Glucose 108 H POC Glucose (mg/dL) Osmolality Magnesium Total Creatine Kinase CK-MB (CK-2) Urine Blood Ur Random Sodium - Diagnostic Findings Chest x-ray: image reviewed (Minimal left basilar atelectasis is noted otherwise unremarkable.) Assessment and Plan Assessment: Impression: 1 acute hypoosmolar hyponatremia, secondary to excessive water intake, evaluation in nature, also compounded by the fact that the patient is on diuretics. 2 hypokalemia and hypomagnesemia, acute. Being corrected. Most likely secondary to diuretics. 3 Benign essential hypertension, continue lisinopril but discontinue hydrochlorothiazide. 4 Generalized anxiety disorder 5 Pulmonary hypertension, needs to be evaluated on outpatient basis. 6 Tobacco dependence syndrome. Patient was counseled regarding smoking cessation. Recommendation: Continue present treatment plan, patient is responding well to treatment, however she seems to be correcting a bit faster than anticipated. Agree with D5W instead of normal saline for now, aim to correct the sodium no more than 0.5 mEq per hour. Patient will be transferred out of the intensive care unit, will continue to follow. Time with Patient: Greater than 30
[2017-07-14] MEDS: DIAZEPAM 5 MG TAB PO SCH ×2 (12:28→20:56)
[2017-07-14] MEDS: ATENOLOL 25 MG TAB PO SCH (12:45)
[2017-07-14] MEDS: SODIUM CHLORIDE 0.9% 1,000 ML IV SCH ×3 (14:15→23:22)
[2017-07-14] MEDS: NICOTINE 21MG/24HR PATCH TRANSDERM SCH (14:20)
[2017-07-14] MEDS ORDERED: LISINOPRIL 20 MG TAB PO STA (17:44)
[2017-07-14] MEDS ORDERED: SODIUM CHLORIDE 0.9% 1,000 ML IV SCH (17:45)
--- NOTE | 2017-07-14 18:37 | CONS ---
CONSULTATION REASON FOR CONSULT: Hyponatremia. HISTORY OF PRESENT ILLNESS: Patient is a 57-year-old female who was admitted to the hospital yesterday with complaints of weakness and fall. The patient was not able to get up. She was found to have a serum sodium of 109 in the ER. The patient stated that she had been drinking a lot of water and had cut down on her oral intake particularly of meat and protein. She did state that she was eating the eggs. The patient had lost weight recently, which was intentional and she is also maintained on lisinopril hydrochlorothiazide at home for her hypertension. The patient denies any significant pain. No shortness of breath. Patient was started on normal saline when she first came in and her sodium went from 109-118 mEq/L in about 6 hours. After that, the patient was switched over to D5W. She did still go up to 125 at which time, patient received a dose of DDAVP and D5W was increased. This morning, her sodium was down a little bit at 123 and then at 116. The patient denies any significant complaints and she states she is feeling better than on admission when she had felt quite weak. Her blood pressure was not too low at the time of admission, however, we did have a systolic of about 82-84 later on during her admission, which was mainly last night. PAST MEDICAL HISTORY: Significant for hypertension and pulmonary hypertension, anxiety disorder. PAST SURGICAL HISTORY: . SOCIAL HISTORY: Positive for smoking. No history of drug abuse or alcohol abuse. MEDICATIONS: Medications at home prior to admission included Zestoretic, Zoloft, aspirin, Claritin, trazodone, Valium, Celexa, iron, Neurontin, Motrin and Latuda. ALLERGIES: INCLUDE LOMOTIL. PHYSICAL EXAMINATION: Patient is comfortable, awake, alert, oriented x3. She is not in any acute distress. Blood pressure this morning when patient was seen was 110/64. She is afebrile. Heart rate 59 per minute. Examination of the heart S1, S2. Examination of the lungs bilateral breath sounds are heard. Abdomen is soft, nontender. Examination lower extremities shows no evidence of edema. There is bruising noted on her face near the right eye. [employer] exam is grossly intact. LABS SHOW: Serum sodium this morning was 123 and serum creatinine 0.7, potassium 3.9, hemoglobin 13.4. Urine osmolality was at 77 and random urine sodium was 21. ASSESSMENT: 1. Hypovolemic hyponatremia with rapid correction of about 9 points in 6 hours. This was subsequently reduced and patient was started on D5W. The serum sodium still went up to 125. Following which, a dose of DDAVP was given. MMVALL / MISSYN: [id number] /
[2017-07-14] MEDS: traZODone HCL 100 MG TAB PO SCH (20:56)
--- NOTE | 2017-07-14 22:45 | P.PN ---
Subjective Progress Note Date: 07/14/17 Principal diagnosis: Hyponatremia Patient is a 57-year-old female with a known history of hypertension, pulmonary hypertension, anxiety/depression was brought to the hospital status post fall and head injury. Patient was apparently walking her dog and about 2 weeks at home when she suddenly felt dizzy and had a syncopal episode. She fell on the ground and struck her head on the walkway. She denied any loss of consciousness. Patient does have small laceration on the right eyebrow and redness. Patient does have some facial pain and posterior neck pain that she came to the hospital patient was improved. Patient had CT head and CT cervical spine which showed no osseous acute abnormality. Patient apparently has been working in the yard last few days. Patient has been drinking free water. Patient does take hydrochlorothiazide/lisinopril at home for blood pressure control which she has been taking for a long time. Patient denied any complaints of fever or chills. No recent illnesses. No nausea vomiting or diarrhea. Denied any chest pain or shortness of breath. Patient does have a history of pulmonary hypertension. Patient did not eat her breakfast this morning otherwise. Patient was found have sodium level of 119 on admission. Serum osmolality 229. Urine osmollality 70 07/14/2017 Patient denied any complaints of dizziness or shortness of breath or chest pain today. No headache. Sodium level improved to 125. IV fluids have been changed to D5 water due to rapid correction of sodium. Nephrology and pulmonary is following. Otherwise patient did improve symptomatically and is being transferred to telemetry unit today. No fever no chills no other acute overnight issues. Patient was started back on metoprolol and lisinopril. Did hold hydrochlorothiazide. All other review of systems negative except the above Current medications reviewed. Objective - Vital Signs Vital signs: Vital Signs Temp 99.6 F 07/14/17 08:00 Pulse 63 07/14/17 10:00 Resp 36 H 07/14/17 10:00 BP 105/61 07/14/17 10:00 Pulse Ox 96 07/14/17 10:00 Intake & Output 07/13/17 07/14/17 07/14/17 18:59 06:59 18:59 Intake Total 450 1400 800 Output Total 3100 Balance 450 -1700 800 Weight 69.6 kg 76.8 kg Intake: IV 950 500 Dextrose 5% in Water 1, 950 500 000 ml @ 125 mls/hr IV . Q8H JAMEL Rx#:[id number] Intake, IV Titration 450 150 Amount Dextrose 5% in Water 1, 50 50 000 ml @ 125 mls/hr IV . Q8H JAMEL Rx#:[id number] Magnesium Sulfate-D5w Pmx 200 100 1 gm In Dextrose/Water 1 100ml.bag @ 100 mls/hr IVPB Q1H JAMEL Rx#: [id number] Sodium Chloride 0.9% 1, 200 000 ml @ 100 mls/hr IV . Q10H JAMEL Rx#:[id number] Oral 300 300 Output: Urine 3100 Other: Voiding Method Bedside Commode # Voids 1 - Exam PHYSICAL EXAMINATION: Patient is lying in the bed comfortably, no acute distress, awake alert and oriented.. HEENT: Normocephalic. Neck is supple. Pupils reactive. Nostrils clear. Oral cavity is moist. Ears reveal no drainage. Neck reveals no JVD, carotid bruits, or thyromegaly. CHEST EXAMINATION: Trachea is central. Symmetrical expansion. Lung lobato clear to auscultation and percussion. CARDIAC: Normal S1, S2 with no gallops. No murmurs ABDOMEN: Soft. Bowel sounds normal. No organomegaly. No abdominal bruits. Extremities: reveal no edema. No clubbing or cyanosis Neurologically awake, alert, oriented x3 with well-coordinated movements. No focal deficits noted Skin: No rash or skin lesions. Psychiatric: Coperative. Nonsuicidal Musculoskeletal: No joint swelling or deformity. Normal range of motion. - Labs CBC & Chem 7: 07/14/17 03:17 07/14/17 20:27 Labs: Abnormal Lab Results - Last 24 Hours (Table) 07/13/17 07/13/17 07/13/17 Range/Units 11:35 11:35 13:59 Sodium (137-145) mmol/L Chloride (98-107) mmol/L Glucose (74-99) mg/dL POC Glucose (mg/dL) (75-99) mg/dL Osmolality 229 L* (280-301) mosm/kg Total Creatine Kinase 409 H (30-135) U/L CK-MB (CK-2) 3.5 H* (0.0-2.4) ng/mL Urine Blood Trace H (Negative) Ur Random Sodium (30-90) mmol/L 07/13/17 07/13/17 07/13/17 Range/Units 13:59 15:48 17:05 Sodium 118 L* (137-145) mmol/L Chloride (98-107) mmol/L Glucose (74-99) mg/dL POC Glucose (mg/dL) 134 H (75-99) mg/dL Osmolality (280-301) mosm/kg Total Creatine Kinase (30-135) U/L CK-MB (CK-2) (0.0-2.4) ng/mL Urine Blood (Negative) Ur Random Sodium 21 L (30-90) mmol/L 07/13/17 07/14/17 07/14/17 Range/Units 20:10 03:17 08:06 Sodium 119 L* 125 L 123 L (137-145) mmol/L Chloride 86 L 92 L (98-107) mmol/L Glucose 108 H (74-99) mg/dL POC Glucose (mg/dL) (75-99) mg/dL Osmolality (280-301) mosm/kg Total Creatine Kinase (30-135) U/L CK-MB (CK-2) (0.0-2.4) ng/mL Urine Blood (Negative) Ur Random Sodium (30-90) mmol/L Assessment and Plan Assessment: Severe hyponatremia likely due to hydrochlorothiazide and decreased solute intake and increased free water intake at home Hypoosmolar hyponatremia Hypokalemia and hyponatremia and hypomagnesemia Hypertension. Currently hypotensive Generalized anxiety disorder Pulmonary hypertension DVT prophylaxis Plan: Patient will be continued on IV hydration with D5 water due to rapid correction of sodium.. We will hold hydrochlorothiazide and other blood pressure medications due to hypotension and follow closely. Nephrology and pulmonary is following.. Further recommendations based on the clinical course. Patient is improving symptomatically at this time. No complaints of dizziness or lightheadedness. Time with Patient: Greater than 30
[2017-07-15] MEDS ORDERED: FUROSEMIDE 10 MG/ML 2 ML VIAL IV ONE (01:24)
[2017-07-15] MEDS: IBUPROFEN 800 MG TAB PO PRN (02:43)
[2017-07-15 05:46] LABS: Basophils % (A) 1 %; Eosinophils # (A) 0.2 k/uL (0-0.7); Eosinophils % (A) 4 %; HCT 35.6 % (34.0-46.0); HGB 12.7 gm/dL (11.4-16.0); Lymphocytes # (A) 1.7 k/uL (1.0-4.8); Lymphocytes % (A) 37 %; MCH 32.5 pg (25.0-35.0); MCHC 35.6 g/dL (31.0-37.0); MCV 91.2 fL (80.0-100.0); Mean Platelet Volume 6.7; Monocytes # (A) 0.4 k/uL (0-1.0); Monocytes % (A) 8 %; Neutrophils # (A) 2.3 k/uL (1.3-7.7); Neutrophils % (A) 50 %; Platelet Count 187 k/uL (150-450); RBC 3.91 m/uL (3.80-5.40); RDW 12.4 % (11.5-15.5); WBC 4.7 k/uL (3.8-10.6)
[2017-07-15 05:57] LABS: Anion Gap 5 mmol/L; Blood Urea Nitrogen 9 mg/dL (7-17); Calcium 8.2 mg/dL (8.4-10.2); Carbon Dioxide 26 mmol/L (22-30); Chloride 87 mmol/L (98-107); Glucose 85 mg/dL (74-99); Magnesium 1.5 mg/dL (1.6-2.3); Phosphorus 2.7 mg/dL (2.5-4.5); Potassium 3.8 mmol/L (3.5-5.1)
[2017-07-15 06:02] LABS: Sodium 118 mmol/L (137-145)
[2017-07-15] MEDS: SODIUM CHLORIDE 0.9% 1,000 ML IV SCH ×2 (06:11→17:45)
[2017-07-15] MEDS: PANTOPRAZOLE 40 MG TABLET PO SCH (06:13)
[2017-07-15] MEDS: HEPARIN SODIUM,PORCINE 5,000 UNIT/ML 1 ML VIAL SQ SCH ×3 (08:19→23:10)
[2017-07-15] MEDS: LISINOPRIL 20 MG TAB PO SCH (08:21)
[2017-07-15] MEDS: LURASIDONE 80 MG TAB PO SCH (08:22)
[2017-07-15] MEDS: SERTRALINE 100 MG TAB PO SCH (08:22)
[2017-07-15] MEDS: ATENOLOL 25 MG TAB PO SCH (08:22)
[2017-07-15] MEDS: FERROUS SULFATE 325 MG TAB PO SCH (08:22)
[2017-07-15] MEDS: ASCORBIC ACID 500 MG TAB PO SCH (08:22)
[2017-07-15] MEDS: CITALOPRAM HYDROBROMIDE 20 MG TAB PO SCH (08:23)
[2017-07-15] MEDS: ASPIRIN 81 MG PO SCH (08:23)
[2017-07-15] MEDS: GABAPENTIN 400 MG CAP PO SCH ×3 (08:23→21:13)
[2017-07-15] MEDS: NICOTINE 21MG/24HR PATCH TRANSDERM SCH (08:42)
--- NOTE | 2017-07-15 10:41 | P.PN ---
Subjective Patient is seen in follow-up for hyponatremia. Initially the sodium corrected rapidly for which she received DDAVP as well as D5W. She is now on normal saline at 100 mL an hour. Sodium level this morning is up to 120. She is currently resting in bed. Denies chest pain or shortness of breath. She was taking thiazide diuretic as an outpatient and also admits to drinking about 6-7 L of water daily. No vomiting or diarrhea. Vital signs are stable. General: The patient appeared well nourished and normally developed. HEENT: Head exam is unremarkable. Neck is without jugular venous distension. LUNGS: Lungs are clear to auscultation and percussion. Breath sounds decreased. HEART: Rate and Rhythm are regular. First and second heart sounds normal. No murmurs, rubs or gallops. ABDOMEN: Abdominal exam reveals normal bowel sounds. Non-tender and non- distended. No evidence of peritonitis. EXTREMITITES: No clubbing, cyanosis, or edema. Objective - Vital Signs Vital signs: Vital Signs Temp 97.4 F L 07/15/17 08:00 Pulse 56 L 07/15/17 08:00 Resp 18 07/15/17 08:00 BP 119/68 07/15/17 08:00 Pulse Ox 99 07/15/17 08:00 Intake & Output 07/14/17 07/15/17 07/15/17 18:59 06:59 18:59 Intake Total 1745 1540 180 Output Total 500 325 Balance 1245 1215 180 Weight 80.5 kg Intake: IV 895 1200 Dextrose 5% in Water 1, 895 000 ml @ 125 mls/hr IV . Q8H JAMEL Rx#:[id number] Sodium Chloride 0.9% 1, 800 000 ml @ 100 mls/hr IV . Q10H JAMEL Rx#:[id number] Sodium Chloride 0.9% 1, 400 000 ml @ 50 mls/hr IV . Q20H JAMEL Rx#:[id number] Intake, IV Titration 50 Amount Sodium Chloride 0.9% 1, 50 000 ml @ 50 mls/hr IV . Q20H JAMEL Rx#:[id number] Oral 800 340 180 Output: Urine 500 325 Other: Voiding Method Toilet # Voids 1 1 1 - Labs CBC & Chem 7: 07/15/17 05:27 07/15/17 09:13 Labs: Abnormal Lab Results - Last 24 Hours (Table) 07/14/17 07/14/17 07/14/17 Range/Units 12:33 16:49 20:27 Sodium 116 L* 115 L* 114 L* (137-145) mmol/L Chloride (98-107) mmol/L Calcium (8.4-10.2) mg/dL Magnesium (1.6-2.3) mg/dL 07/15/17 07/15/17 07/15/17 Range/Units 00:30 05:27 09:13 Sodium 115 L* 118 L* 120 L* (137-145) mmol/L Chloride 87 L (98-107) mmol/L Calcium 8.2 L (8.4-10.2) mg/dL Magnesium 1.5 L (1.6-2.3) mg/dL Assessment and Plan Plan: Assessment: 1. Hyponatremia secondary to excess water intake in the setting of low solute intake. Her urine is dilute and urine sodium is low. Improving with normal saline. Sodium level up to 120 this morning. 2. Hypomagnesemia due to poor oral intake and diuretic. 3. Benign hypertension. Controlled. 4. Status post fall likely related to hyponatremia. Plan: Continue normal saline at 100 mL an hour. Repeat sodium level at 5 PM today. Replace magnesium. 2 g IV today. Avoid NSAIDs as it can also lead to hyponatremia and fluid retention. Encouraged solute intake.
[2017-07-15] MEDS: MAGNESIUM SULFATE-D5W PMX 1 GM in DEXTROSE/WATER 1 100ML.BAG IVPB SCH ×2 (10:44→12:11)
--- NOTE | 2017-07-15 12:08 | P.PN ---
Subjective Progress Note Date: 07/15/17 Principal diagnosis: Acute hyperosmolar hyponatremia This is a 57-year-old female with history of hypertension, generalized anxiety disorder, pulmonary hypertension, patient was brought into the hospital after a fall and head injury. Patient was walking her dog, and she suddenly felt dizzy , and passed out, had a syncopal episode. Fell to the ground, and struck her head on the walkway. Patient denies any loss of consciousness. She sustained a small laceration on the right eyebrow and some redness. Seen in the ER, patient had full workup which came back negative and nondiagnostic including his CT of the head and cervical spine. Workup in the ER revealed a low sodium of 109. Patient has no previous history of underlying malignancy. She is a smoker, and her chest x-ray is relatively unremarkable. Patient is on diuretics in the form of hydrochlorothiazide with the Cipro for hypertension. She has been drinking almost 10 glasses of water every day for a long time. Her serum sodium was low, serum osmolality was low, and urine osmolality was only 70. Serum osmolality was 229, and urine osmolality was 70. This is clearly indicative of dilutional hyponatremia secondary to excessive free water intake, compounded by salt losses from diuretics./Hydrochlorothiazide. Patient was admitted, placed on 0.9 normal saline, significant and relatively rapid correction was noted of the sodium, hence she was switched to D5W overnight, and her last sodium was 125, rechecked after giving her D5W it is 123. Patient seems to be correcting relatively faster than expected. Hence she will remain on D5W for now, and we'll correct the hyponatremia a bit slower. Patient is relatively asymptomatic at present, no headache, no blurred vision, no dizziness , no nausea no vomiting no abdominal pain no diarrhea. The patient is seen again today 07/15/2017 in follow-up on the selective care unit. She is awake and alert in no acute distress. She denies any shortness of breath, cough or congestion. She is maintaining good O2 saturations in the upper 90s on room air. She's been afebrile. Hemodynamically stable. No chest pain, palpitations lightheadedness or dizziness. No headaches. Her current sodium is 120. She remains on 0.9 normal saline at 100 MLS per hour. Objective - Vital Signs Vital signs: Vital Signs Temp 97.4 F L 06/07/18 08:00 Pulse 56 L 07/15/17 08:00 Resp 18 07/15/17 08:00 BP 119/68 07/15/17 08:00 Pulse Ox 99 07/15/17 08:00 Intake & Output 07/14/17 07/15/17 07/15/17 18:59 06:59 18:59 Intake Total 1745 1540 180 Output Total 500 325 Balance 1245 1215 180 Weight 80.5 kg Intake: IV 895 1200 Dextrose 5% in Water 1, 895 000 ml @ 125 mls/hr IV . Q8H JAMEL Rx#:[id number] Sodium Chloride 0.9% 1, 800 000 ml @ 100 mls/hr IV . Q10H JAMEL Rx#:[id number] Sodium Chloride 0.9% 1, 400 000 ml @ 50 mls/hr IV . Q20H JAMEL Rx#:[id number] Intake, IV Titration 50 Amount Sodium Chloride 0.9% 1, 50 000 ml @ 50 mls/hr IV . Q20H JAMEL Rx#:[id number] Oral 800 340 180 Output: Urine 500 325 Other: Voiding Method Toilet # Voids 1 1 1 - Exam GENERAL EXAM: Alert, active, comfortable in no apparent distress. HEAD: Normocephalic. EYES: Abrasion over the right eye Normal reaction of pupils, equal size. NOSE: Clear with pink turbinates. THROAT: No erythema or exudates. NECK: No masses, no JVD. CHEST: No chest wall deformity. LUNGS: Equal air entry with no crackles, wheeze, rhonchi or dullness. CVS: S1 and S2 normal with no audible murmur, regular rhythm. ABDOMEN: No hepatosplenomegaly, normal bowel sounds, no guarding or rigidity. SPINE: No scoliosis or deformity SKIN: No rashes CENTRAL NERVOUS SYSTEM: No focal deficits, tone is normal in all 4 extremities. EXTREMITIES: There is no peripheral edema. No clubbing, no cyanosis. Peripheral pulses are intact. - Labs CBC & Chem 7: 07/15/17 05:27 07/15/17 09:13 Labs: Abnormal Lab Results - Last 24 Hours (Table) 07/14/17 07/14/17 07/14/17 Range/Units 12:33 16:49 20:27 Sodium 116 L* 115 L* 114 L* (137-145) mmol/L Chloride (98-107) mmol/L Calcium (8.4-10.2) mg/dL Magnesium (1.6-2.3) mg/dL 07/15/17 07/15/17 07/15/17 Range/Units 00:30 05:27 09:13 Sodium 115 L* 118 L* 120 L* (137-145) mmol/L Chloride 87 L (98-107) mmol/L Calcium 8.2 L (8.4-10.2) mg/dL Magnesium 1.5 L (1.6-2.3) mg/dL Assessment and Plan Assessment: Impression: 1 acute hypoosmolar hyponatremia, secondary to excessive water intake, evaluation in nature, also compounded by the fact that the patient is on diuretics. 2 hypokalemia and hypomagnesemia, acute. Being corrected. Most likely secondary to diuretics. 3 Benign essential hypertension, continue lisinopril but discontinue hydrochlorothiazide. 4 Generalized anxiety disorder 5 Pulmonary hypertension, needs to be evaluated on outpatient basis. 6 Tobacco dependence syndrome. Patient was counseled regarding smoking cessation. Plan: The patient was seen and evaluated by Dr. Grubbs. She is stable from the pulmonary and critical care standpoint. Nephrology is on the case and adjusting her IV fluids according to her sodium levels. We will increase her activity as tolerated. We'll continue to follow. I, the cosigning physician, performed a history & physical examination of the patient. Lungs sounds are clear. Maintaining good O2 saturations in the 90s on room air. I discussed the assessment and plan of care with my nurse practitioner, Cady Delvalle. I attest to the above note as dictated by her.
[2017-07-15] MEDS: DIAZEPAM 5 MG TAB PO SCH ×2 (12:12→21:13)
[2017-07-15] MEDS ORDERED: DEXTROSE 5% IN WATER 1,000 ML IV SCH (18:00)
[2017-07-15] MEDS: traZODone HCL 100 MG TAB PO SCH (21:13)
[2017-07-16 06:12] LABS: Basophils % (A) 1 %; Eosinophils # (A) 0.2 k/uL (0-0.7); Eosinophils % (A) 4 %; HCT 35.8 % (34.0-46.0); HGB 12.6 gm/dL (11.4-16.0); Lymphocytes # (A) 1.5 k/uL (1.0-4.8); Lymphocytes % (A) 38 %; MCH 32.8 pg (25.0-35.0); MCHC 35.1 g/dL (31.0-37.0); MCV 93.2 fL (80.0-100.0); Mean Platelet Volume 7.1; Monocytes # (A) 0.3 k/uL (0-1.0); Monocytes % (A) 8 %; Neutrophils # (A) 1.9 k/uL (1.3-7.7); Neutrophils % (A) 48 %; Platelet Count 212 k/uL (150-450); RBC 3.84 m/uL (3.80-5.40); WBC 3.9 k/uL (3.8-10.6)
[2017-07-16] MEDS: PANTOPRAZOLE 40 MG TABLET PO SCH (06:12)
[2017-07-16 06:27] LABS: Anion Gap 8 mmol/L; Blood Urea Nitrogen 14 mg/dL (7-17); Calcium 9.1 mg/dL (8.4-10.2); Carbon Dioxide 25 mmol/L (22-30); Chloride 101 mmol/L (98-107); Glucose 86 mg/dL (74-99); Phosphorus 3.4 mg/dL (2.5-4.5); Potassium 4.4 mmol/L (3.5-5.1); Sodium 134 mmol/L (137-145)
[2017-07-16 08:49] VITALS: RESP 16; TEMP 97
[2017-07-16] MEDS: NICOTINE 21MG/24HR PATCH TRANSDERM SCH (08:55)
[2017-07-16] MEDS: HEPARIN SODIUM,PORCINE 5,000 UNIT/ML 1 ML VIAL SQ SCH (08:55)
[2017-07-16] MEDS: ASCORBIC ACID 500 MG TAB PO SCH (08:56)
[2017-07-16] MEDS: ASPIRIN 81 MG PO SCH (08:56)
[2017-07-16] MEDS: FERROUS SULFATE 325 MG TAB PO SCH (08:56)
[2017-07-16] MEDS: ATENOLOL 25 MG TAB PO SCH (08:56)
[2017-07-16] MEDS: GABAPENTIN 400 MG CAP PO SCH (08:56)
[2017-07-16] MEDS: CITALOPRAM HYDROBROMIDE 20 MG TAB PO SCH (08:56)
[2017-07-16] MEDS: SERTRALINE 100 MG TAB PO SCH (08:57)
[2017-07-16] MEDS: LISINOPRIL 20 MG TAB PO SCH (08:57)
[2017-07-16] MEDS: LURASIDONE 80 MG TAB PO SCH (08:57)
[2017-07-16] MEDS: DIAZEPAM 5 MG TAB PO SCH (12:08)
--- NOTE | 2017-07-16 12:13 | P.PN ---
Subjective Progress Note Date: 07/16/17 Principal diagnosis: Acute hyperosmolar hyponatremia This is a 57-year-old female with history of hypertension, generalized anxiety disorder, pulmonary hypertension, patient was brought into the hospital after a fall and head injury. Patient was walking her dog, and she suddenly felt dizzy , and passed out, had a syncopal episode. Fell to the ground, and struck her head on the walkway. Patient denies any loss of consciousness. She sustained a small laceration on the right eyebrow and some redness. Seen in the ER, patient had full workup which came back negative and nondiagnostic including his CT of the head and cervical spine. Workup in the ER revealed a low sodium of 109. Patient has no previous history of underlying malignancy. She is a smoker, and her chest x-ray is relatively unremarkable. Patient is on diuretics in the form of hydrochlorothiazide with the Cipro for hypertension. She has been drinking almost 10 glasses of water every day for a long time. Her serum sodium was low, serum osmolality was low, and urine osmolality was only 70. Serum osmolality was 229, and urine osmolality was 70. This is clearly indicative of dilutional hyponatremia secondary to excessive free water intake, compounded by salt losses from diuretics./Hydrochlorothiazide. Patient was admitted, placed on 0.9 normal saline, significant and relatively rapid correction was noted of the sodium, hence she was switched to D5W overnight, and her last sodium was 125, rechecked after giving her D5W it is 123. Patient seems to be correcting relatively faster than expected. Hence she will remain on D5W for now, and we'll correct the hyponatremia a bit slower. Patient is relatively asymptomatic at present, no headache, no blurred vision, no dizziness , no nausea no vomiting no abdominal pain no diarrhea. The patient is seen again today 07/15/2017 in follow-up on the selective care unit. She is awake and alert in no acute distress. She denies any shortness of breath, cough or congestion. She is maintaining good O2 saturations in the upper 90s on room air. She's been afebrile. Hemodynamically stable. No chest pain, palpitations lightheadedness or dizziness. No headaches. Her current sodium is 120. She remains on 0.9 normal saline at 100 MLS per hour. The patient is seen today 07/16/2017 in follow-up on the selective care unit. She is awake and alert in no acute distress. She denies any dizziness or lightheadedness. No syncopal episodes. Her sodium has recovered, currently 134. 0.9 normal saline discontinued. The plan is for discharge home today. Objective - Vital Signs Vital signs: Vital Signs Temp 97 F L 07/16/17 08:45 Pulse 60 07/16/17 08:45 Resp 16 07/16/17 08:45 BP 119/53 07/16/17 08:45 Pulse Ox 96 07/16/17 08:45 Intake & Output 07/15/17 07/16/17 07/16/17 18:59 06:59 18:59 Intake Total 2180 1000 700 Balance 2180 1000 700 Weight 69.2 kg Intake: IV 1100 1000 Dextrose 5% in Water 1, 200 000 ml @ 100 mls/hr IV . Q10H JAMEL Rx#:[id number] Sodium Chloride 0.9% 1, 1100 800 000 ml @ 100 mls/hr IV . Q10H JAMEL Rx#:[id number] Oral 1080 700 Other: Voiding Method Toilet # Voids 1 - Exam GENERAL EXAM: Alert, active, comfortable in no apparent distress. HEAD: Normocephalic. EYES: Abrasion over the right eye Normal reaction of pupils, equal size. NOSE: Clear with pink turbinates. THROAT: No erythema or exudates. NECK: No masses, no JVD. CHEST: No chest wall deformity. LUNGS: Equal air entry with no crackles, wheeze, rhonchi or dullness. CVS: S1 and S2 normal with no audible murmur, regular rhythm. ABDOMEN: No hepatosplenomegaly, normal bowel sounds, no guarding or rigidity. SPINE: No scoliosis or deformity SKIN: No rashes CENTRAL NERVOUS SYSTEM: No focal deficits, tone is normal in all 4 extremities. EXTREMITIES: There is no peripheral edema. No clubbing, no cyanosis. Peripheral pulses are intact. - Labs CBC & Chem 7: 07/16/17 05:43 07/16/17 05:43 Labs: Abnormal Lab Results - Last 24 Hours (Table) 07/15/17 07/15/17 07/16/17 Range/Units 17:09 21:19 05:43 Sodium 129 L 130 L 134 L (137-145) mmol/L Assessment and Plan Assessment: Impression: 1 acute hypoosmolar hyponatremia, secondary to excessive water intake, also compounded by the fact that the patient is on diuretics. Recovered. 2 hypokalemia and hypomagnesemia, acute. Recovered. 4.4 and 2.0 respectively today. 3 Benign essential hypertension, continue lisinopril but discontinue hydrochlorothiazide. 4 Generalized anxiety disorder 5 Pulmonary hypertension, needs to be evaluated on outpatient basis. 6 Tobacco dependence syndrome. Patient was counseled regarding smoking cessation. Plan: The patient was seen and evaluated by Dr. Grubbs. She is cleared for discharge from the pulmonary and critical care standpoint. She is again encouraged regarding the importance of complete smoking cessation. Medications recommendations per nephrology. I, the cosigning physician, performed a history & physical examination of the patient. Lungs sounds are clear. Maintaining good O2 saturations in the 90s on room air. I discussed the assessment and plan of care with my nurse practitioner, Cady Delvalle. I attest to the above note as dictated by her.
[2017-07-16 12:22] VITALS: BP 134/63; PULSE 52
--- NOTE | 2017-07-16 14:24 | PN ---
PROGRESS NOTE Patient is seen for followup for hyponatremia. She is currently significantly improved. Her sodium is up to 134. Patient was maintained on normal saline. It is now discontinued. She is maintained on fluid restriction. The patient states she feels well. PHYSICAL EXAMINATION: On examination, blood pressure is 119/53, heart rate 52 per minute. Patient is afebrile. EXAMINATION OF THE HEART: S1, S2. EXAMINATION OF THE LUNGS: Bilateral breath sounds are heard. Abdomen is soft, nontender. Examination of lower extremities shows no evidence of edema. [employer] exam is grossly intact. LABS: Labs show sodium 134, potassium 4.4. Hemoglobin 12.6 g/dL. ASSESSMENT: 1. Hyponatremia which is hypovolemic currently improved significantly. Continue off of IV fluids. Patient is advised to maintain fluid restriction and increase protein intake. She can be discharged from nephrology standpoint with plans to follow up as outpatient in about 1 to 2 weeks time. 2. Hypokalemia and hypomagnesemia, currently improved and is status post replacement. 3. Pulmonary hypertension. 4. Hypertension, currently off of thiazide. The patient will need to stay off of the thiazide diuretics for now. PLAN: Patient is stable for discharge. Continue off of thiazide diuretics. She may resume the lisinopril. Will follow up as outpatient in about 1 to 2 weeks time. Maintain good protein intake and maintain fluid restriction as well. MMODL / IJN: [id number] /
== END 2017-07-16 15:04 | disposition home or self-care (01) | DRG 641 ==
LOC: EC 11:03 → 6SEL 13:58 → 6ICU 14:55 → 6SEL 07-14 18:10
PROVIDERS: ADMIT Internal Medicine; ATTEND Internal Medicine
DX: E87.1 Hypo-osmolality and hyponatremia (principal); E83.42 Hypomagnesemia; I27.20 Pulmonary hypertension, unspecified; I95.9 Hypotension, unspecified; S09.90XA Unspecified injury of head, initial encounter; F32.9 Major depressive disorder, single episode, unspecified; E87.6 Hypokalemia; F41.1 Generalized anxiety disorder; I10 Essential (primary) hypertension; I49.3 Ventricular premature depolarization; S01.111A Laceration without foreign body of right eyelid and periocular area, initial encounter; S60.812A Abrasion of left wrist, initial encounter; T50.2X5A Adverse effect of carbonic-anhydrase inhibitors, benzothiadiazides and other diuretics, initial encounter; M54.2 Cervicalgia; R55 Syncope and collapse; F17.210 Nicotine dependence, cigarettes, uncomplicated; Z79.899 Other long term (current) drug therapy; Z79.82 Long term (current) use of aspirin; Z88.8 Allergy status to other drugs, medicaments and biological substances; Z71.6 Tobacco abuse counseling; Z82.49 Family history of ischemic heart disease and other diseases of the circulatory system; Z82.5 Family history of asthma and other chronic lower respiratory diseases; Z82.3 Family history of stroke; W18.30XA Fall on same level, unspecified, initial encounter; Y93.K1 Activity, walking an animal; Y92.9 Unspecified place or not applicable
CPT/HCPCS: 36415; 70450; 71046; 72125; 80048; 80053; 81001; 82435; 82550; 82553; 83036; 83735; 83930; 83935; 84100; 84132; 84295; 84300; 84484; 85025; 90471; 90715; 93005; 96360; 99285

== ENCOUNTER 2017-11-24 15:46 | Emergency (ER) | payer OTHER ==
[2017-11-24] MEDS ORDERED: DIAZEPAM 5 MG/ML 2 ML INJ IVP STA (16:07)
[2017-11-24] MEDS ORDERED: METOCLOPRAMIDE 5 MG/ML 2 ML VIAL IVP STA (16:07)
[2017-11-24] MEDS ORDERED: SODIUM CHLORIDE 0.9% 1,000 ML IV STA (16:07)
[2017-11-24] MEDS ORDERED: NITROGLYCERIN SL TABS 0.4 MG TAB SUBLINGUAL STA (16:08)
[2017-11-24] MEDS ORDERED: GLUCAGON 1 MG/ML VIAL IVP STA ×2 (16:08→16:49)
--- NOTE | 2017-11-24 16:12 | ED ---
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 Patient states she always cut cerebral small because sometimes it feels like to get stuck. Patient states last night she treated recently and it did not appear to go down. Patient states he vomited multiple times and she thought she got the meet up but ever since then she's been unable to eat any food or drink any fluids. Patient stated every time she attempts to drink or eat she vomits it up. Patient states since that time she's felt a fullness in her chest and is worse when she eats or drinks and is improved when she vomits up the fluid. Patient denies any difficulty breathing or shortness of breath. Patient denies any palpitations. Patient denies any diaphoretic episodes. Patient denies any abdominal pain patient denies nausea vomiting diarrhea. Patient denies any radiation of this fullness. Patient denies any syncopal or near syncopal episode. Patient denies any dizziness or lightheadedness. - Related Data Home Medications Medication Instructions Recorded Confirmed Atenolol 25 mg PO QAM 01/19/15 11/24/17 Sertraline HCl [Zoloft] 200 mg PO QAM 01/19/15 11/24/17 Aspirin EC [Ecotrin Low Dose] 81 mg PO DAILY 07/11/16 11/24/17 Diazepam [Valium] 5 mg PO TID PRN 07/13/17 11/24/17 Ibuprofen [Motrin] 800 mg PO TID PRN 07/13/17 11/24/17 Lurasidone [Latuda] 80 mg PO DAILY 07/13/17 11/24/17 Gabapentin 600 mg PO TID 11/24/17 11/24/17 Loratadine [Claritin] 10 mg PO HS 11/24/17 11/24/17 Multivitamins, Thera [Multivitamin 1 tab PO DAILY 11/24/17 11/24/17 (formulary)] Previous Rx's Medication Instructions Recorded Lisinopril [Zestril] 20 mg PO DAILY #30 tab 07/16/17 Allergies Allergy/AdvReac Type Severity Reaction Status Date / Time atropine sulfate Allergy Rash/Hives Verified 11/24/17 16:28 [From Lomotil] diphenoxylate HCl Allergy Rash/Hives Verified 11/24/17 16:28 [From Lomotil] Review of Systems ROS Statement: Those systems with pertinent positive or pertinent negative responses have been documented in the HPI. ROS Other: All systems not noted in ROS Statement are negative. Past Medical History Past Medical History: Hypertension Additional Past Medical History / Comment(s): pulmonary htn, generalized anxiety disorder History of Any Multi-Drug Resistant Organisms: None Reported Past Surgical History: Section Past Anesthesia/Blood Transfusion Reactions: No Reported Reaction Past Psychological History: Anxiety, Depression Smoking Status: Current every day smoker Past Alcohol Use History: None Reported Past Drug Use History: None Reported - Past Family History Mother Family Medical History: Hypertension Additional Family Medical History / Comment(s): lived to 84, " from emphysema" Father Family Medical History: CVA/TIA, Dementia, Dialysis, Hypertension Additional Family Medical History / Comment(s): lived to be 86, hypotension General Exam - General Exam Comments Initial Comments: GENERAL: Patient is well-developed and well-nourished. Patient is nontoxic and well- hydrated and is in mild distress. ENT: Neck is soft and supple. No significant lymphadenopathy is noted. Oropharynx is clear. Moist mucous membranes. Neck has full range of motion without eliciting any pain. EYES: The sclera were anicteric and conjunctiva were pink and moist. Extraocular movements were intact and pupils were equal round and reactive to light. Eyelids were unremarkable. PULMONARY: Unlabored respirations. Good breath sounds bilaterally. No audible rales rhonchi or wheezing was noted. CARDIOVASCULAR: There is a regular rate and rhythm without any murmurs gallops or rubs. ABDOMEN: Soft and nontender with normal bowel sounds. No palpable organomegaly was noted. There is no palpable pulsatile mass. SKIN: Skin is clear with no lesions or rashes and otherwise unremarkable. NEUROLOGIC: Patient is alert and oriented x3. Cranial nerves II through XII are grossly intact. Motor and sensory are also intact. Normal speech, volume and content. Symmetrical smile. MUSCULOSKELETAL: Normal extremities with adequate strength and full range of motion. LYMPHATICS: No significant lymphadenopathy is noted PSYCHIATRIC: Normal psychiatric evaluation. Normal interpersonal interactions appears functionally intact in deals appropriately with others. No signs of depression. No signs of anxiety. Limitations: no limitations Course Vital Signs 11/24/17 11/24/17 11/24/17 15:52 17:01 18:59 Temperature 98.7 F Pulse Rate 101 H 78 61 Respiratory 18 17 18 Rate Blood Pressure 193/104 123/87 182/103 O2 Sat by Pulse 98 97 98 Oximetry 11/24/17 11/24/17 19:00 19:40 Temperature Pulse Rate 56 L 61 Respiratory 13 13 Rate Blood Pressure 154/128 179/108 O2 Sat by Pulse 98 97 Oximetry Medical Decision Making - Medical Decision Making EKG shows sinus rhythm with frequent PVCs in a bigeminy pattern at 76 bpm WY interval 128 QRS is 90 QT intervals 420 QTC is 41. Chest x-ray this EKG the patient's rhythm settled down and there were no more PVCs and another EKG was done and showed a normal sinus rhythm at 62 bpm WY interval 232 QRS is 90 QT intervals 438 QTC is 444. Patient's EKG shows no ST segment elevation or depression or T wave abnormalities are noted. Patient is given multiple medications to try and get the food bolus down and was unsuccessful and patient could not swallow her own saliva. At this point time I spoke with Dr. Cleary second time and he agreed to come in tonight and remove the foreign body. Dr. Gil arrived to the emergency department and remove multiple pieces of meat. I reevaluated the patient she stated everything felt normal again and was having no discomfort whatsoever. - Lab Data Result diagrams: 11/24/17 16:27 11/24/17 16:27 Lab Results 11/24/17 11/24/17 11/24/17 Range/Units 16:24 16:27 16:27 WBC 7.2 (3.8-10.6) k/uL RBC 4.92 (3.80-5.40) m/uL Hgb 16.1 H (11.4-16.0) gm/dL Hct 48.0 H (34.0-46.0) % MCV 97.6 (80.0-100.0) fL MCH 32.7 (25.0-35.0) pg MCHC 33.5 (31.0-37.0) g/dL RDW 13.2 (11.5-15.5) % Plt Count 232 (150-450) k/uL Neutrophils % 76 % Lymphocytes % 16 % Monocytes % 5 % Eosinophils % 2 % Basophils % 1 % Neutrophils # 5.4 (1.3-7.7) k/uL Lymphocytes # 1.2 (1.0-4.8) k/uL Monocytes # 0.4 (0-1.0) k/uL Eosinophils # 0.1 (0-0.7) k/uL Basophils # 0.0 (0-0.2) k/uL PT (9.0-12.0) sec INR (<1.2) APTT (22.0-30.0) sec Sodium (137-145) mmol/L Potassium (3.5-5.1) mmol/L Chloride (98-107) mmol/L Carbon Dioxide (22-30) mmol/L Anion Gap mmol/L BUN (7-17) mg/dL Creatinine (0.52-1.04) mg/dL Est GFR (CKD-EPI)AfAm (>60 ml/min/1.73 sqM) Est GFR (CKD-EPI)NonAf (>60 ml/min/1.73 sqM) Glucose (74-99) mg/dL Calcium (8.4-10.2) mg/dL Magnesium 2.0 (1.6-2.3) mg/dL Total Bilirubin (0.2-1.3) mg/dL AST (14-36) U/L ALT (9-52) U/L Alkaline Phosphatase (38-126) U/L Total Creatine Kinase 111 (30-135) U/L CK-MB (CK-2) 1.0 (0.0-2.4) ng/mL CK-MB (CK-2) Rel Index 0.9 Troponin I <0.012 (0.000-0.034) ng/mL Total Protein (6.3-8.2) g/dL Albumin (3.5-5.0) g/dL 11/24/17 11/24/17 Range/Units 16:27 16:27 WBC (3.8-10.6) k/uL RBC (3.80-5.40) m/uL Hgb (11.4-16.0) gm/dL Hct (34.0-46.0) % MCV (80.0-100.0) fL MCH (25.0-35.0) pg MCHC (31.0-37.0) g/dL RDW (11.5-15.5) % Plt Count (150-450) k/uL Neutrophils % % Lymphocytes % % Monocytes % % Eosinophils % % Basophils % % Neutrophils # (1.3-7.7) k/uL Lymphocytes # (1.0-4.8) k/uL Monocytes # (0-1.0) k/uL Eosinophils # (0-0.7) k/uL Basophils # (0-0.2) k/uL PT 10.4 (9.0-12.0) sec INR 1.1 (<1.2) APTT 23.4 (22.0-30.0) sec Sodium 144 (137-145) mmol/L Potassium 3.7 (3.5-5.1) mmol/L Chloride 111 H (98-107) mmol/L Carbon Dioxide 23 (22-30) mmol/L Anion Gap 10 mmol/L BUN 7 (7-17) mg/dL Creatinine 0.69 (0.52-1.04) mg/dL Est GFR (CKD-EPI)AfAm >90 (>60 ml/min/1.73 sqM) Est GFR (CKD-EPI)NonAf >90 (>60 ml/min/1.73 sqM) Glucose 105 H (74-99) mg/dL Calcium 9.9 (8.4-10.2) mg/dL Magnesium 2.0 (1.6-2.3) mg/dL Total Bilirubin 0.6 (0.2-1.3) mg/dL AST 27 (14-36) U/L ALT 29 (9-52) U/L Alkaline Phosphatase 79 (38-126) U/L Total Creatine Kinase (30-135) U/L CK-MB (CK-2) (0.0-2.4) ng/mL CK-MB (CK-2) Rel Index Troponin I (0.000-0.034) ng/mL Total Protein 7.7 (6.3-8.2) g/dL Albumin 4.4 (3.5-5.0) g/dL Disposition Clinical Impression: Esophageal foreign body Disposition: HOME SELF-CARE Condition: Good Instructions: Esophageal Foreign Body (ED) Is patient prescribed a controlled substance at d/c from ED?: No Referrals: Jade Lockett MD [Primary Care Provider] - 1-2 days Time of Disposition: 21:51
[2017-11-24 16:39] LABS: Basophils % (A) 1 %; Eosinophils # (A) 0.1 k/uL (0-0.7); Eosinophils % (A) 2 %; HGB 16.1 gm/dL (11.4-16.0); Lymphocytes # (A) 1.2 k/uL (1.0-4.8); Lymphocytes % (A) 16 %; MCH 32.7 pg (25.0-35.0); MCHC 33.5 g/dL (31.0-37.0); MCV 97.6 fL (80.0-100.0); Mean Platelet Volume 7.7; Monocytes # (A) 0.4 k/uL (0-1.0); Monocytes % (A) 5 %; Neutrophils # (A) 5.4 k/uL (1.3-7.7); Neutrophils % (A) 76 %; Platelet Count 232 k/uL (150-450); RBC 4.92 m/uL (3.80-5.40); RDW 13.2 % (11.5-15.5); WBC 7.2 k/uL (3.8-10.6)
[2017-11-24 16:47] LABS: ALT 29 U/L (9-52); AST 27 U/L (14-36); Albumin 4.4 g/dL (3.5-5.0); Alkaline Phosphatase 79 U/L (38-126); Anion Gap 10 mmol/L; Blood Urea Nitrogen 7 mg/dL (7-17); Calcium 9.9 mg/dL (8.4-10.2); Carbon Dioxide 23 mmol/L (22-30); Chloride 111 mmol/L (98-107); Glucose 105 mg/dL (74-99); Potassium 3.7 mmol/L (3.5-5.1); Sodium 144 mmol/L (137-145); Total Bilirubin 0.6 mg/dL (0.2-1.3); Total Protein 7.7 g/dL (6.3-8.2)
[2017-11-24 16:54] LABS: INR 1.1 (<1.2); Partial Thromboplastin Time 23.4 sec (22.0-30.0); Prothrombin Time 10.4 sec (9.0-12.0)
[2017-11-24 17:03] LABS: Creatine Kinase 111 U/L (30-135)
[2017-11-24 17:17] LABS: Troponin I <0.012 ng/mL (0.000-0.034)
[2017-11-24] MEDS ORDERED: MORPHINE SULFATE 2 MG/ML SYRINGE IVP STA (19:55)
[2017-11-24] MEDS ORDERED: SODIUM CHLORIDE 0.9% 500 ML IV ONE (20:30)
[2017-11-24] MEDS ORDERED: PROPOFOL 10 MG/ML 20 ML VIAL IV ONE (20:44)
[2017-11-24] MEDS ORDERED: LIDOCAINE 1% INJ 10MG/ML (20 ML MDV) ONE (20:44)
[2017-11-24 22:08] VITALS: RESP 18
[2017-11-24 22:10] VITALS: BP 139/86; PULSE 67; TEMP 98.6
--- NOTE | 2017-11-25 07:09 | PCN ---
PROCEDURE NOTE This is a patient of the emergency room. DATE OF SERVICE: November 24, 2017. PROCEDURE: Esophagogastroduodenoscopy and removal of esophageal foreign body. PREOPERATIVE DIAGNOSIS: Obstructive dysphagia. POSTOPERATIVE DIAGNOSES: 1. Large impacted piece of meat removed with a snare in multiple pieces. 2. Esophageal stricture. 3. Moderately sized hiatal hernia. Preparation and sedation were provided by Anesthesia. BRIEF CLINICAL HISTORY: The patient is a 57-year-old female who presented to the emergency room with the complaint of inability to swallow including her saliva that started last night while she was eating meat. The patient had similar episode years ago and she apparently has family history of this problem in her sisters as well. The patient did not respond to a dose of glucagon and other emergency room interventions and we came in to do this procedure at the bedside in the emergency room. PROCEDURE: With the patient on her left lateral decubitus position and after informed consent and adequate sedation, I passed the Olympus [id number]-[id number] video upper endoscope through the cricopharyngeus down the esophagus. There was significant amount of secretions and food debris that was suctioned then the impacted piece of meat was seen in the distal esophagus. I was able to capture that with a snare and I withdrew a large piece of it by withdrawing the endoscope. I repeated the intervention a couple of times and that resulted in removal of all the impacted piece of meat. GE junction was around 32 cm from the incisors and there was a stricture that did not interfere with the advancement of the endoscope. There was a moderately sized hiatal hernia. Then the endoscope was passed into the stomach which was insufflated with air and inspected in detail including the retroflexed view in the cardia. No other abnormalities were noted. I retroflexed the endoscope in the before the endoscope was withdrawn. The patient tolerated the procedure well. PLAN: The patient will stay on clear liquids today, then she can advance her diet tomorrow. Further plan based on her course. Consideration will be given for elective endoscopy if her symptoms persist. MMODL / IJN: [id number] /
== END 2017-11-24 22:00 | disposition home or self-care (01) ==
LOC: EC 15:46
DX: T18.128A Food in esophagus causing other injury, initial encounter (principal); I10 Essential (primary) hypertension; F32.9 Major depressive disorder, single episode, unspecified; F41.9 Anxiety disorder, unspecified; F17.200 Nicotine dependence, unspecified, uncomplicated; Z88.8 Allergy status to other drugs, medicaments and biological substances; Z79.82 Long term (current) use of aspirin; Z79.899 Other long term (current) drug therapy
CPT/HCPCS: 99285; 96374; 96375 ×3; 96361 ×2; 36415; 93005; 80053; 82550; 82553; 83735; 84484; 85025; 85610; 85730; 43247; J1610; J2765; J3360; J2001; J2270; J2704

== ENCOUNTER 2018-11-26 10:47 | Emergency (ER) | payer OTHER ==
[2018-11-26 10:52] VITALS: BP 158/85; PULSE 82; RESP 16; TEMP 98.3
[2018-11-26] MEDS ORDERED: ACET/COD 300 MG/30 MG STARTER PACK 6 TAB BTL PO STA (11:41)
--- NOTE | 2018-11-26 11:47 | ED ---
ENT HPI - General Chief complaint: Dental/Oral Stated complaint: dental abscess Time Seen by Provider: 11/26/18 10:59 Source: patient Mode of arrival: ambulatory Limitations: no limitations - History of Present Illness Initial comments: Patient is a 58-year-old female with history of poor dentition is presenting to the emergency department with a chief complaint dental pain. Patient reports she developed pain about 2 days ago at tooth #10. Patient reports currently she is undergoing full extractions in order to have a dentures. Patient reports si milar pain is radiating on the left side of her face. Patient denies any swelling, drooling or dysphagia. Patient reports taking [id number] ibuprofen with minimal improvement. Patient denies any fevers or chills. - Related Data Home Medications Medication Instructions Recorded Confirmed Atenolol 25 mg PO QAM 01/19/15 11/26/18 Sertraline HCl [Zoloft] 200 mg PO QAM 01/19/15 11/26/18 Aspirin EC [Ecotrin Low Dose] 81 mg PO DAILY 07/11/16 11/26/18 Ibuprofen [Motrin] 800 mg PO TID PRN 07/13/17 11/26/18 Lurasidone [Latuda] 80 mg PO DAILY 07/13/17 11/26/18 Gabapentin 600 mg PO TID 11/24/17 11/26/18 Loratadine [Claritin] 10 mg PO DAILY PRN 11/24/17 11/26/18 Multivitamins, Thera [Multivitamin 1 tab PO DAILY 11/24/17 11/26/18 (formulary)] Betamethasone Dipropionate 1 applic TOPICAL DAILY PRN 11/26/18 11/26/18 [Diprolene 0.05% Lotion] Previous Rx's Medication Instructions Recorded Lisinopril [Zestril] 20 mg PO DAILY #30 tab 07/16/17 Amoxicillin/Potassium Clav 1 tab PO Q12HR #20 tab 11/26/18 [Augmentin 875-125 Tablet] Allergies Allergy/AdvReac Type Severity Reaction Status Date / Time atropine sulfate Allergy Rash/Hives Verified 11/26/18 11:01 [From Lomotil] diphenoxylate HCl Allergy Rash/Hives Verified 11/26/18 11:01 [From Lomotil] Review of Systems ROS Statement: Those systems with pertinent positive or pertinent negative responses have been documented in the HPI. ROS Other: All systems not noted in ROS Statement are negative. Past Medical History Past Medical History: Hypertension Additional Past Medical History / Comment(s): pulmonary htn, generalized anxiety disorder History of Any Multi-Drug Resistant Organisms: None Reported Past Surgical History: Section Past Anesthesia/Blood Transfusion Reactions: No Reported Reaction Past Psychological History: Anxiety, Depression Smoking Status: Current every day smoker Past Alcohol Use History: None Reported Past Drug Use History: None Reported - Past Family History Mother Family Medical History: Hypertension Additional Family Medical History / Comment(s): lived to 84, " from emphysema" Father Family Medical History: CVA/TIA, Dementia, Dialysis, Hypertension Additional Family Medical History / Comment(s): lived to be 86, hypotension General Exam Limitations: no limitations General appearance: alert, in no apparent distress Head exam: Present: atraumatic, normocephalic, normal inspection Eye exam: Present: normal appearance Pupils: Present: normal accommodation ENT exam: Present: normal exam, mucous membranes moist, TM's normal bilaterally, normal external ear exam. Absent: normal oropharynx (Poor dentition. Cavity on tooth #10. Mild erythema around the gums. No periapical abscesses noted.), other (No facial swelling. No oral lesions.) Neck exam: Present: normal inspection, full ROM Respiratory exam: Present: normal lung sounds bilaterally Cardiovascular Exam: Present: regular rate, normal rhythm, normal heart sounds Extremities exam: Present: normal inspection, full ROM Back exam: Present: normal inspection, full ROM Neurological exam: Present: alert, oriented X3 Psychiatric exam: Present: normal affect, normal mood Skin exam: Present: warm, intact, normal color Course Vital Signs 11/26/18 10:49 Temperature 98.3 F Pulse Rate 82 Respiratory 16 Rate Blood Pressure 158/85 O2 Sat by Pulse 98 Oximetry Medical Decision Making - Medical Decision Making Patient is a 58-year-old female with history of poor dentition is presenting to emergency Department with a chief complaint of dental pain. Patient has had dental pain for about 2 days and based on physical examination it appears the patient has an infection on the gum line along tooth #10. No signs of abscess. Patient will be treated with Augmentin and discharged with Tylenol 3. Patient advised about the possible side effects of Tylenol 3. Patient sees a dentist and advised to return for further management. Strict return parameters were thoroughly discussed the patient was understanding and agreeable. Case discussed with physician. Disposition Clinical Impression: Pain, dental Disposition: HOME SELF-CARE Condition: Stable Instructions (If sedation given, give patient instructions): Toothache (ED) Additional Instructions: Please take prescribed medication as directed. Please follow up with his dentist. Please return to emergency department if symptoms worsen. Alternate between Tylenol and ibuprofen for pain control. Prescriptions: Amoxicillin/Potassium Clav [Augmentin 875-125 Tablet] 1 tab PO Q12HR #20 tab Is patient prescribed a controlled substance at d/c from ED?: No Referrals: Jade Lockett MD [Primary Care Provider] - 1-2 days Time of Disposition: 11:46
== END 2018-11-26 12:08 | disposition home or self-care (01) ==
LOC: EC 10:47
DX: K02.9 Dental caries, unspecified (principal); K08.89 Other specified disorders of teeth and supporting structures; I10 Essential (primary) hypertension; F32.9 Major depressive disorder, single episode, unspecified; F41.1 Generalized anxiety disorder; F17.200 Nicotine dependence, unspecified, uncomplicated; Z88.8 Allergy status to other drugs, medicaments and biological substances; Z79.82 Long term (current) use of aspirin; Z79.899 Other long term (current) drug therapy
CPT/HCPCS: 99282

== ENCOUNTER → 2019-08-15 | Outpatient (CLI) | payer OTHER ==
[2019-08-15 11:37] LABS: HCT 38.7 % (34.0-46.0); HGB 12.2 gm/dL (11.4-16.0); MCH 30.9 pg (25.0-35.0); MCHC 31.4 g/dL (31.0-37.0); MCV 98.2 fL (80.0-100.0); Mean Platelet Volume 8.1; Platelet Count 235 k/uL (150-450); RBC 3.94 m/uL (3.80-5.40); RDW 14.1 % (11.5-15.5); WBC 4.4 k/uL (3.8-10.6)
[2019-08-15 18:21] LABS: Hemoglobin A1C 5.3 % (4.0-6.0)
[2019-08-15 20:04] LABS: African American GFR (CKD) 92.9 (60.0-200.0); Albumin 3.7 g/dL (3.80-4.90); Albumin/Globulin Ratio 1.61 (1.60-3.17); Anion Gap 7.9 mmol/L (4.00-12.00); BUN/Creat Ratio 17.5 Ratio (12.00-20.00); Calcium 8.8 mg/dL (8.7-10.3); Carbon Dioxide 27.1 mmol/L (21.6-31.8); Chol/HDL Ratio 3.53; Globulin 2.3 g/dL (1.6-3.3); LDL Cholesterol,Calculated 84.2 mg/dL (0.0-131.0); Non-African American GFR(CKD) 80.1 (60.0-200.0); Potassium 4.2 mmol/L (3.5-5.5); Total Bilirubin 0.3 mg/dL (0.2-1.2); VLDL Calculation 11.8 mg/dL (5.00-40.00)
[2019-08-15 20:14] LABS: T4, Free (Free Thyroxine) 0.8 ng/dL (0.80-1.80)
== END | disposition home or self-care (01) ==
LOC: LABWHC1 10:16
PROVIDERS: ATTEND Psychiatry & Neurology Psychiatry
DX: I10 Essential (primary) hypertension (principal); F31.60 Bipolar disorder, current episode mixed, unspecified; Z79.899 Other long term (current) drug therapy
CPT/HCPCS: 36415; 80053; 80061; 83036; 84439; 84443; 85027

== ENCOUNTER 2020-01-04 11:09 | Emergency (ER) | payer OTHER ==
[2020-01-04] MEDS ORDERED: KETOROLAC 15 MG/ML 1 ML VIAL IVP STA (12:01)
[2020-01-04] MEDS ORDERED: METOCLOPRAMIDE 5 MG/ML 2 ML VIAL IVP STA (12:01)
[2020-01-04] MEDS ORDERED: GLUCAGON 1 MG/ML VIAL IVP STA ×2 (12:07→13:47)
[2020-01-04] MEDS ORDERED: diphenhydrAMINE 50 MG/ML 1 ML VIAL IVP STA (12:07)
--- NOTE | 2020-01-04 12:35 | XR ---
EXAMINATION TYPE: XR chest 2V DATE OF EXAM: 01/04/2020 COMPARISON: Chest x-ray July 13, 2017 HISTORY: Chest pain and dysphagia. TECHNIQUE: Frontal and lateral views of the chest are obtained. FINDINGS: There is no suspicious new focal air space opacity, pleural effusion, or pneumothorax seen . The cardiac silhouette size is stable and within normal limits. Suggestion of new horizontal air-f luid level on 2 views in the mid esophagus The osseous structures are intact. IMPRESSION: Possible obstructed mid esophageal lesion.
--- NOTE | 2020-01-04 13:14 | ED ---
ENT HPI - General Chief complaint: ENT Stated complaint: Something in throat Time Seen by Provider: 01/04/20 11:41 Source: patient Mode of arrival: ambulatory Limitations: no limitations - History of Present Illness Initial comments: Patient is a 59-year-old female presenting to the emergency Department with complaints of a feeling like a piece of food is stuck in the middle of her chest since about 11 PM last night. Patient states she has a history of a narrowed esophagus and has had this problem in the past. Patient states she can sometimes force herself to throw up and that parents issue however it is not working this time. Patient states she has not been able to keep any liquids down, she is constantly spitting out saliva. She feels nauseous. She denies any difficulty breathing. She denies any fever or chills. She has no further complaints at this time. Upon arrival to the ER her vitals are stable. - Related Data Home Medications Medication Instructions Recorded Confirmed Sertraline HCl [Zoloft] 200 mg PO QAM 01/19/15 11/26/18 atenoloL [Atenolol] 25 mg PO QAM 01/19/15 11/26/18 Aspirin EC [Ecotrin Low Dose] 81 mg PO DAILY 07/11/16 11/26/18 Ibuprofen [Motrin] 800 mg PO TID PRN 07/13/17 11/26/18 Lurasidone [Latuda] 80 mg PO DAILY 07/13/17 11/26/18 Gabapentin 600 mg PO TID 11/24/17 11/26/18 Loratadine [Claritin] 10 mg PO DAILY PRN 11/24/17 11/26/18 Multivitamins, Thera [Multivitamin 1 tab PO DAILY 11/24/17 11/26/18 (formulary)] Betamethasone Dipropionate 1 applic TOPICAL DAILY PRN 11/26/18 11/26/18 [Diprolene 0.05% Lotion] Previous Rx's Medication Instructions Recorded lisinopriL [Zestril] 20 mg PO DAILY #30 tab 07/16/17 Amoxicillin/Potassium Clav 1 tab PO Q12HR #20 tab 11/26/18 [Augmentin 875-125 Tablet] Omeprazole [PriLOSEC] 20 mg PO AC-BRKFST 30 Days #30 cap 01/04/20 Allergies Allergy/AdvReac Type Severity Reaction Status Date / Time atropine sulfate Allergy Rash/Hives Verified 01/04/20 11:26 [From Lomotil] diphenoxylate HCl Allergy Rash/Hives Verified 01/04/20 11:26 [From Lomotil] Review of Systems ROS Statement: Those systems with pertinent positive or pertinent negative responses have been documented in the HPI. ROS Other: All systems not noted in ROS Statement are negative. Past Medical History Past Medical History: Hypertension Additional Past Medical History / Comment(s): pulmonary htn, generalized anxiety disorder History of Any Multi-Drug Resistant Organisms: None Reported Past Surgical History: Section Past Anesthesia/Blood Transfusion Reactions: No Reported Reaction Past Psychological History: Anxiety, Depression Smoking Status: Current every day smoker Past Alcohol Use History: None Reported Past Drug Use History: None Reported - Past Family History Mother Family Medical History: Hypertension Additional Family Medical History / Comment(s): lived to 84, " from emphysema" Father Family Medical History: CVA/TIA, Dementia, Dialysis, Hypertension Additional Family Medical History / Comment(s): lived to be 86, hypotension General Exam - General Exam Comments Initial Comments: GENERAL: Patient is well-developed and well-nourished. Patient is nontoxic and in no acute distress. HEAD: Atraumatic, normocephalic. EYES: Pupils equal round and reactive to light, extraocular movements intact, sclera anicteric, conjunctiva are normal. Eyelids were unremarkable. ENT: TMs normal, nares patent, oropharynx clear without exudates. Moist mucous mem branes. NECK: Normal range of motion, supple without lymphadenopathy or JVD. LUNGS: Unlabored respirations. Breath sounds clear to auscultation bilaterally and equal. No wheezes rales or rhonchi. HEART: Regular rate and rhythm without murmurs, rubs or gallops. ABDOMEN: Soft, nontender, normoactive bowel sounds. No guarding, no rebound. No masses appreciated. : Deferred MUSCULOSKELETAL: Normal extremities with adequate strength and normal range of motion, no pitting or edema. No clubbing or cyanosis. NEUROLOGICAL: Patient is alert and oriented x 3. Motor and sensory are also intact. Cranial nerves II through XII grossly intact. Symmetrical smile. Normal speech, normal gait. PSYCH: Normal mood, normal affect. SKIN: Warm, Dry, normal turgor, no rashes or lesions noted. Limitations: no limitations Course Vital Signs 01/04/20 01/04/20 01/04/20 11:24 13:27 15:13 Temperature 98.6 F Pulse Rate 52 L 58 L 50 L Respiratory 20 18 18 Rate Blood Pressure 167/94 136/79 130/68 O2 Sat by Pulse 99 99 98 Oximetry 01/04/20 15:40 Temperature 97.9 F Pulse Rate 53 L Respiratory 18 Rate Blood Pressure 147/98 O2 Sat by Pulse 98 Oximetry - Reevaluation(s) Reevaluation #1: 01/04/20 13:51 ENDO team was paged, awaiting their arrival. Patient stable. Reevaluation #2: 01/04/20 14:50 Endo team is here with the patient. Medical Decision Making - Medical Decision Making Patient is a 59-year-old female presenting with a feeling of something stuck in her throat since last night. She states she's been trying to vomit to get the piece of food L Gianni is not working. She is not able to keep down any liquids. She is not in any acute distress, breathing normally. She is complaining of nausea. We did give her Reglan, 2 doses of glucagon and Benadryl without improvement in her symptoms. Patient is still not been able to keep any liquids down. We did discuss case with on-call GI, Dr. Parham, who agrees to come in with endo team. Endo team successfully removed foreign object. Patient tolerated procedure well, no complications. Her vital signs remained stable. She feels improvement in her symptoms. She is able to tolerate oral intake. Patient is stable for discharge. I will start her on omeprazole daily for 1 month. She'll follow up with Dr. Parham. Patient is in agreement with this plan of care. Return parameters were discussed with the patient and she verbalized understanding. Case discussed with Dr. Pendleton. - EKG Data EKG Comments: Sinus bradycardia with sinus arrhythmia, nonspecific T-wave abnormalities, no signs of acute ischemia. Ventricular rate 50, CT interval 120, QT 476. Disposition Clinical Impression: Esophageal foreign body Disposition: HOME SELF-CARE Condition: Stable Instructions (If sedation given, give patient instructions): Esophageal Foreign Body (ED), Moderate Sedation (ED) Additional Instructions: Please return to the Emergency Department if symptoms worsen or any other concerns. Recommend taking omeprazole daily as prescribed. Follow-up with PCP and GI. Prescriptions: Omeprazole [PriLOSEC] 20 mg PO AC-BRKT 30 Days #30 cap Is patient prescribed a controlled substance at d/c from ED?: No Referrals: Jade Lockett MD [Primary Care Provider] - 1-2 days Mich Parham MD [STAFF PHYSICIAN] - 1-2 days
[2020-01-04 13:29] VITALS: RESP 18
[2020-01-04] MEDS ORDERED: IV FLUID CONTINUATION 1,000 ML IV ONE ×2 (14:47)
--- NOTE | 2020-01-04 15:14 | P.CONS ---
History of Present Illness - Reason for Consult Consult date: 01/04/20 Esophageal foreign body Requesting physician: Xiomara Gonzales - Chief Complaint Esophageal foreign body - History of Present Illness 59-year-old female with a medical history significant for pulmonary hypertension, anxiety and hypertension who presented to the hospital due to complaints of food lodged in her esophagus. The patient reports she was eating at [employer] yesterday when she developed symptoms of an esophageal obstruction. She was unable to swallow, drink liquids or tolerate her secretions. She reports a long-standing history of difficulty with swallowing and getting food down her esophagus, she attributes this in large part due to issues with her teeth and being unable to properly chew food. She previously has been seen in 11/2017 with foreign body removal at that time. She is not on any PPI therapy at home. She denies any abdominal pain at this time. Review of Systems REVIEW OF SYSTEMS: CONSTITUTIONAL: Denies any fevers, chills, weight change or fatigue. CARDIOVASCULAR: Denies any chest pain, palpitations high or low blood pressures RESPIRATORY: Denies any shortness of breath, hemoptysis or cough. GENITOURINARY: No dysuria or hematuria. MUSCULOSKELETAL: No weakness reported. SKIN: Denies any new rashes or lesions, jaundice or pallor. PSYCHIATRIC: Denies any depression or anxiety at this time but does have a history of anxiety. NEUROLOGY: Denies headache, denies any new focal deficits. EARS/NOSE/THROAT: No recent hearing change, congestion, nasal discharge or sore throat. EYES: No pain in eyes, discharge or change in vision. GASTROINTESTINAL: As per HPI. Past Medical History Past Medical History: Hypertension Additional Past Medical History / Comment(s): pulmonary htn, generalized anxiety disorder History of Any Multi-Drug Resistant Organisms: None Reported Past Surgical History: Section Past Anesthesia/Blood Transfusion Reactions: No Reported Reaction Past Psychological History: Anxiety, Depression Smoking Status: Current every day smoker Past Alcohol Use History: None Reported Past Drug Use History: None Reported - Past Family History Mother Family Medical History: Hypertension Additional Family Medical History / Comment(s): lived to 84, " from emphysema" Father Family Medical History: CVA/TIA, Dementia, Dialysis, Hypertension Additional Family Medical History / Comment(s): lived to be 86, hypotension Medications and Allergies Home Medications Medication Instructions Recorded Confirmed Type Sertraline HCl [Zoloft] 200 mg PO QAM 01/19/15 11/26/18 History atenoloL [Atenolol] 25 mg PO QAM 01/19/15 11/26/18 History Aspirin EC [Ecotrin Low Dose] 81 mg PO DAILY 07/11/16 11/26/18 History Ibuprofen [Motrin] 800 mg PO TID PRN 07/13/17 11/26/18 History Lurasidone [Latuda] 80 mg PO DAILY 07/13/17 11/26/18 History lisinopriL [Zestril] 20 mg PO DAILY #30 tab 07/16/17 11/26/18 Rx Gabapentin 600 mg PO TID 11/24/17 11/26/18 History Loratadine [Claritin] 10 mg PO DAILY PRN 11/24/17 11/26/18 History Multivitamins, Thera [Multivitamin 1 tab PO DAILY 11/24/17 11/26/18 History (formulary)] Amoxicillin/Potassium Clav 1 tab PO Q12HR #20 tab 11/26/18 Rx [Augmentin 875-125 Tablet] Betamethasone Dipropionate 1 applic TOPICAL DAILY PRN 11/26/18 11/26/18 History [Diprolene 0.05% Lotion] Allergies Allergy/AdvReac Type Severity Reaction Status Date / Time atropine sulfate Allergy Rash/Hives Verified 01/04/20 11:26 [From Lomotil] diphenoxylate HCl Allergy Rash/Hives Verified 01/04/20 11:26 [From Lomotil] Physical Exam Vitals: Vital Signs Temp Pulse Resp BP Pulse Ox 01/04/20 13:27 58 L 18 136/79 99 01/04/20 11:24 98.6 F 52 L 20 167/94 99 Intake and Output 01/03/20 01/04/20 01/04/20 22:59 06:59 14:59 Other: Weight 68.039 kg On physical examination, patient appears comfortable in no apparent distress. HEAD: Normocephalic, atraumatic. EYES: No scleral icterus. No conjunctival injection. MOUTH: No lesions, tongue midline. NECK: Trachea midline, no gross abnormalities. CHEST: Clear to auscultation with no wheezing or rhonchi appreciated. HEART: Regular rate and rhythm. ABDOMEN: Soft, nontender. Bowel sounds are positive. No organomegaly. No guarding or rigidity. EXTREMITIES: No pedal edema. SKIN: No rashes, no jaundice. NEUROLOGIC: Alert and oriented x3. No focal deficits. Results Chest x-ray: report reviewed (Possible obstructed been esophageal lesion on chest x-ray) Assessment and Plan (1) Esophageal foreign body Narrative/Plan: 59-year-old woman presenting with complaints of an esophageal foreign body. She has had intermittent dysphagia for solid she can remember, partially due to difficulty chewing her food secondary to poor dentition. Symptoms began after eating last night and persisted including difficulty swallowing and managing secretions. Last EGD with foreign body removal in 11/2017. Current Visit: Yes Status: Acute Code(s): T18.108A - UNSP FOREIGN BODY IN ESOPHAGUS CAUSING OTH INJURY, INIT SNOMED Code(s): 69047719 (2) Esophageal dysphagia Current Visit: Yes Status: Acute Code(s): R13.10 - DYSPHAGIA, UNSPECIFIED SNOMED Code(s): 63713916 Plan: Supportive care Nothing by mouth Patient will benefit from daily PPI therapy in the future Chest x-ray reviewed Plan for emergent EGD Thank you for allowing us to participate in the care of the patient
--- NOTE | 2020-01-04 15:17 | P.PCN ---
Date of Procedure: 01/04/20 Description of Procedure: BRIEF HISTORY: 59-year-old female with a medical history significant for pulmonary hypertension, anxiety and hypertension who presented to the hospital due to complaints of food lodged in her esophagus. The patient reports she was eating at [employer] yesterday when she developed symptoms of an esophageal obstruction. She was unable to swallow, drink liquids or tolerate her secretions. She reports a long-standing history of difficulty with swallowing and getting food down her esophagus, she attributes this in large part due to issues with her teeth and being unable to properly chew food. She previously has been seen in 11/2017 with foreign body removal at that time. She is not on any PPI therapy at home. She denies any abdominal pain at this time. PROCEDURE PERFORMED: Esophagogastroduodenoscopy with removal of esophageal foreign body. PREOPERATIVE DIAGNOSIS: Esophageal foreign body, esophageal dysphagia. ESTIMATED BLOOD LOSS: Minimal. IV sedation per anesthesia. PROCEDURE: After informed consent was obtained, the patient was brought into the endoscopy unit. IV sedation was administered by Anesthesia under continuous monitoring. Initially the Olympus GIF-190 video endoscope was inserted into the mouth. Esophagus intubated without any difficulty. It was gradually advanced into the distal esophagus where a large amount of food was noted. A snare was used to remove a large portion of the food from the esophagus, with the remaining food pushed gently into the stomach. The scope was then advanced into the stomach and duodenum and carefully examined. The bulb and the second part of the duodenum appeared normal. The scope at this time was withdrawn to the stomach, adequately insufflated with air, and upon careful examination, mucosa of the antrum, body, cardia and the fundus appeared normal. The scope was then withdrawn into the esophagus. The GE junction was located at 35 cm from the incisors, with a 3 cm hiatal hernia noted. A widely patent distal esophageal Schatzki's ring was noted. There was mild LA grade a esophagitis at the area of the foreign body. The patient tolerated the procedure well. IMPRESSION: 1. Esophageal foreign body with removal. 2. LA grade a distal esophagitis. 3. Hiatal hernia. 4. Widely patent distal esophageal Schatzki's ring. RECOMMENDATIONS: The findings of this examination were discussed with the patient . Okay to resume full liquid diet and advance as tolerated. Recommendation was for patient to initiate daily PPI therapy. Okay for discharge if otherwise medically stable.
[2020-01-04 15:52] VITALS: BP 147/98; PULSE 53; TEMP 97.9
== END 2020-01-04 15:50 | disposition home or self-care (01) ==
LOC: EC 11:09
DX: T18.108A Unspecified foreign body in esophagus causing other injury, initial encounter (principal); K20.90 Esophagitis, unspecified without bleeding; K44.9 Diaphragmatic hernia without obstruction or gangrene; K22.2 Esophageal obstruction; I10 Essential (primary) hypertension; F41.9 Anxiety disorder, unspecified; F32.9 Major depressive disorder, single episode, unspecified; F17.200 Nicotine dependence, unspecified, uncomplicated; Z79.899 Other long term (current) drug therapy; Z79.82 Long term (current) use of aspirin; Z88.8 Allergy status to other drugs, medicaments and biological substances; Z88.5 Allergy status to narcotic agent; X58.XXXA Exposure to other specified factors, initial encounter
CPT/HCPCS: 99284; 96374; 96375 ×3; 96376; 93005; 71046; J1200; J1610; J2765; J1885

== ENCOUNTER 2020-04-07 12:39 | Inpatient (IN) | payer OTHER ==
[2020-04-07] MEDS ORDERED: SODIUM CHLORIDE 0.9% 500 ML 500 ML IV STA (12:56)
--- NOTE | 2020-04-07 13:06 | ED ---
General Adult HPI - General Chief complaint: Recheck/Abnormal Lab/Rx Stated complaint: high liver enzymes Time Seen by Provider: 04/07/20 12:51 Source: patient, RN notes reviewed Mode of arrival: ambulatory Limitations: no limitations - History of Present Illness Initial comments: 59-year-old female presents emergency Department chief complaint of abnormal liver enzymes. Patient states that she went in to her primary care physician because she injured her left leg and also swollen. Patient had lab work which showed elevated liver enzymes. Patient believes is related to use of Kratom. Patient states she's been increasing her dose to control her symptoms. Patient denies any alcohol abuse. No prior gallbladder liver disease. Patient states t hat her left leg is also more swollen that wasn't slightly painful. No chest pain or shortness breath no history of PE DVT. - Related Data Home Medications Medication Instructions Recorded Confirmed Sertraline HCl [Zoloft] 200 mg PO QAM 01/19/15 11/26/18 atenoloL [Atenolol] 25 mg PO QAM 01/19/15 11/26/18 Aspirin EC [Ecotrin Low Dose] 81 mg PO DAILY 07/11/16 11/26/18 Ibuprofen [Motrin] 800 mg PO TID PRN 07/13/17 11/26/18 Lurasidone [Latuda] 80 mg PO DAILY 07/13/17 11/26/18 Gabapentin 600 mg PO TID 11/24/17 11/26/18 Loratadine [Claritin] 10 mg PO DAILY PRN 11/24/17 11/26/18 Multivitamins, Thera [Multivitamin 1 tab PO DAILY 11/24/17 11/26/18 (formulary)] Betamethasone Dipropionate 1 applic TOPICAL DAILY PRN 11/26/18 11/26/18 [Diprolene 0.05% Lotion] Previous Rx's Medication Instructions Recorded lisinopriL [Zestril] 20 mg PO DAILY #30 tab 07/16/17 Amoxicillin/Potassium Clav 1 tab PO Q12HR #20 tab 11/26/18 [Augmentin 875-125 Tablet] Omeprazole [PriLOSEC] 20 mg PO AC-BRKFST 30 Days #30 cap 01/04/20 Allergies Allergy/AdvReac Type Severity Reaction Status Date / Time atropine sulfate Allergy Rash/Hives Verified 04/07/20 12:50 [From Lomotil] diphenoxylate HCl Allergy Rash/Hives Verified 04/07/20 12:50 [From Lomotil] Review of Systems ROS Statement: Those systems with pertinent positive or pertinent negative responses have been documented in the HPI. ROS Other: All systems not noted in ROS Statement are negative. Past Medical History Past Medical History: Hypertension Additional Past Medical History / Comment(s): pulmonary htn, generalized anxiety disorder History of Any Multi-Drug Resistant Organisms: None Reported Past Surgical History: Section Past Anesthesia/Blood Transfusion Reactions: No Reported Reaction Past Psychological History: Anxiety, Depression Smoking Status: Current every day smoker Past Alcohol Use History: None Reported Past Drug Use History: None Reported - Past Family History Mother Family Medical History: Hypertension Additional Family Medical History / Comment(s): lived to 84, " from emphysema" Father Family Medical History: CVA/TIA, Dementia, Dialysis, Hypertension Additional Family Medical History / Comment(s): lived to be 86, hypotension General Exam Limitations: no limitations General appearance: alert, in no apparent distress Head exam: Present: atraumatic, normocephalic, normal inspection Eye exam: Present: normal appearance, PERRL, EOMI. Absent: scleral icterus, conjunctival injection, periorbital swelling Neck exam: Present: normal inspection, full ROM. Absent: tenderness, menin gismus, lymphadenopathy Respiratory exam: Present: normal lung sounds bilaterally. Absent: respiratory distress, wheezes, rales, rhonchi, stridor Cardiovascular Exam: Present: regular rate, normal rhythm, normal heart sounds. Absent: systolic murmur, diastolic murmur, rubs, gallop, clicks GI/Abdominal exam: Present: soft, normal bowel sounds. Absent: distended, tenderness, guarding, rebound, rigid Extremities exam: Present: pedal edema, other (My left leg swelling, pedal pulses equal bilaterally minimal tenderness) Neurological exam: Present: alert, oriented X3 Skin exam: Present: warm, dry, intact, normal color. Absent: rash Course Vital Signs 04/07/20 12:48 Temperature 98.6 F Pulse Rate 60 Respiratory 18 Rate Blood Pressure 179/104 O2 Sat by Pulse 98 Oximetry Medical Decision Making - Medical Decision Making Patient's workup does reveal transaminitis, all child is negative for acute findings otherwise no other acute labwork changes. Patient also has left leg is unremarkable. Patient's transaminitis may related to Kratom use which she's been increasing. Patient be advised to discontinue use she will follow-up with PCP and GI. Patient does not have any acute evidence of biliary blockage bilirubin is negative. Patient is stable for discharge case discussed with Dr.. Galvez - Lab Data Result diagrams: 04/07/20 13:43 04/07/20 13:43 Lab Results 04/07/20 04/07/20 04/07/20 Range/Units 13:43 13:43 13:43 WBC 4.4 (3.8-10.6) k/uL RBC 4.20 (3.80-5.40) m/uL Hgb 13.4 (11.4-16.0) gm/dL Hct 39.8 (34.0-46.0) % MCV 94.8 (80.0-100.0) fL MCH 32.0 (25.0-35.0) pg MCHC 33.8 (31.0-37.0) g/dL RDW 12.8 (11.5-15.5) % Plt Count 170 (150-450) k/uL MPV 7.7 Neutrophils % 48 % Lymphocytes % 37 % Monocytes % 4 % Eosinophils % 9 % Basophils % 1 % Neutrophils # 2.1 (1.3-7.7) k/uL Lymphocytes # 1.6 (1.0-4.8) k/uL Monocytes # 0.2 (0-1.0) k/uL Eosinophils # 0.4 (0-0.7) k/uL Basophils # 0.0 (0-0.2) k/uL PT 10.2 (9.0-12.0) sec INR 0.9 (<1.2) APTT 24.0 (22.0-30.0) sec Sodium (137-145) mmol/L Potassium (3.5-5.1) mmol/L Chloride (98-107) mmol/L Carbon Dioxide (22-30) mmol/L Anion Gap mmol/L BUN (7-17) mg/dL Creatinine (0.52-1.04) mg/dL Est GFR (CKD-EPI)AfAm (>60 ml/min/1.73 sqM) Est GFR (CKD-EPI)NonAf (>60 ml/min/1.73 sqM) Glucose (74-99) mg/dL Plasma Lactic Acid Avni (0.7-2.0) mmol/L Calcium (8.4-10.2) mg/dL Total Bilirubin (0.2-1.3) mg/dL AST (14-36) U/L ALT (4-34) U/L Alkaline Phosphatase (38-126) U/L Total Protein (6.3-8.2) g/dL Albumin (3.5-5.0) g/dL Amylase (30-110) U/L Lipase (23-300) U/L Urine Color Colorless Urine Appearance Clear (Clear) Urine pH 5.0 (5.0-8.0) Ur Specific [place] 1.004 (1.001-1.035) Urine Protein Negative (Negative) Urine Glucose (UA) Negative (Negative) Urine Ketones Negative (Negative) Urine Blood Small H (Negative) Urine Nitrite Negative (Negative) Urine Bilirubin Negative (Negative) Urine Urobilinogen <2.0 (<2.0) mg/dL Ur Leukocyte Esterase Negative (Negative) Urine RBC 1 (0-5) /hpf Ur Squamous Epith Cells <1 (0-4) /hpf 04/07/20 04/07/20 Range/Units 13:43 13:43 WBC (3.8-10.6) k/uL RBC (3.80-5.40) m/uL Hgb (11.4-16.0) gm/dL Hct (34.0-46.0) % MCV (80.0-100.0) fL MCH (25.0-35.0) pg MCHC (31.0-37.0) g/dL RDW (11.5-15.5) % Plt Count (150-450) k/uL MPV Neutrophils % % Lymphocytes % % Monocytes % % Eosinophils % % Basophils % % Neutrophils # (1.3-7.7) k/uL Lymphocytes # (1.0-4.8) k/uL Monocytes # (0-1.0) k/uL Eosinophils # (0-0.7) k/uL Basophils # (0-0.2) k/uL PT (9.0-12.0) sec INR (<1.2) APTT (22.0-30.0) sec Sodium 139 (137-145) mmol/L Potassium 4.1 (3.5-5.1) mmol/L Chloride 106 (98-107) mmol/L Carbon Dioxide 28 (22-30) mmol/L Anion Gap 5 mmol/L BUN 7 (7-17) mg/dL Creatinine 0.67 (0.52-1.04) mg/dL Est GFR (CKD-EPI)AfAm >90 (>60 ml/min/1.73 sqM) Est GFR (CKD-EPI)NonAf >90 (>60 ml/min/1.73 sqM) Glucose 93 (74-99) mg/dL Plasma Lactic Acid Avni <0.5 L (0.7-2.0) mmol/L Calcium 8.4 (8.4-10.2) mg/dL Total Bilirubin 0.3 (0.2-1.3) mg/dL AST 653 H (14-36) U/L ALT 206 H (4-34) U/L Alkaline Phosphatase 64 (38-126) U/L Total Protein 6.1 L (6.3-8.2) g/dL Albumin 3.4 L (3.5-5.0) g/dL Amylase 72 (30-110) U/L Lipase 177 (23-300) U/L Urine Color Urine Appearance (Clear) Urine pH (5.0-8.0) Ur Specific [place] (1.001-1.035) Urine Protein (Negative) Urine Glucose (UA) (Negative) Urine Ketones (Negative) Urine Blood (Negative) Urine Nitrite (Negative) Urine Bilirubin (Negative) Urine Urobilinogen (<2.0) mg/dL Ur Leukocyte Esterase (Negative) Urine RBC (0-5) /hpf Ur Squamous Epith Cells (0-4) /hpf Disposition Clinical Impression: Transaminitis, Drug side effects Disposition: HOME SELF-CARE Condition: Stable Instructions (If sedation given, give patient instructions): Abdominal Pain (ED) Additional Instructions: Please avoid use of Kratom, alcohol, Tylenol . Please return to the Emergency Department if symptoms worsen or any other concerns. Is patient prescribed a controlled substance at d/c from ED?: No Referrals: Jade Lockett MD [Primary Care Provider] - 1-2 days Mich Parham MD [STAFF PHYSICIAN] - 1-2 days Time of Disposition: 14:36
[2020-04-07 13:57] LABS: Basophils % (A) 1 %; Eosinophils # (A) 0.4 k/uL (0-0.7); Eosinophils % (A) 9 %; HCT 39.8 % (34.0-46.0); HGB 13.4 gm/dL (11.4-16.0); Lymphocytes # (A) 1.6 k/uL (1.0-4.8); Lymphocytes % (A) 37 %; MCHC 33.8 g/dL (31.0-37.0); MCV 94.8 fL (80.0-100.0); Mean Platelet Volume 7.7; Monocytes # (A) 0.2 k/uL (0-1.0); Monocytes % (A) 4 %; Neutrophils # (A) 2.1 k/uL (1.3-7.7); Neutrophils % (A) 48 %; Platelet Count 170 k/uL (150-450); RDW 12.8 % (11.5-15.5); WBC 4.4 k/uL (3.8-10.6)
[2020-04-07 13:59] LABS: Appearance,Urine Clear (Clear); Bilirubin,Urine Negative (Negative); Blood,Urine Small (Negative); Color,Urine Colorless; Glucose,Urine (UA) Negative (Negative); Ketones,Urine Negative (Negative); Leukocyte Esterase,Urine Negative (Negative); Nitrite,Urine Negative (Negative); Protein,Urine Negative (Negative); RBC,Urine 1 /hpf (0-5); Specific Gravity,Urine 1.004 (1.001-1.035); Squamous Epithelial Cell,Urine <1 /hpf (0-4); Urobilinogen,Urine <2.0 mg/dL (<2.0)
[2020-04-07 14:12] LABS: ALT 206 U/L (4-34); AST 653 U/L (14-36); African American GFR (CKD) >90 (>60 ml/min/1.73 sqM); Albumin 3.4 g/dL (3.5-5.0); Alkaline Phosphatase 64 U/L (38-126); Amylase 72 U/L (30-110); Anion Gap 5 mmol/L; Blood Urea Nitrogen 7 mg/dL (7-17); Calcium 8.4 mg/dL (8.4-10.2); Carbon Dioxide 28 mmol/L (22-30); Chloride 106 mmol/L (98-107); Glucose 93 mg/dL (74-99); INR 0.9 (<1.2); Lipase 177 U/L (23-300); Non-African American GFR(CKD) >90 (>60 ml/min/1.73 sqM); Potassium 4.1 mmol/L (3.5-5.1); Prothrombin Time 10.2 sec (9.0-12.0); Sodium 139 mmol/L (137-145); Total Bilirubin 0.3 mg/dL (0.2-1.3); Total Protein 6.1 g/dL (6.3-8.2)
--- NOTE | 2020-04-07 14:27 | US ---
EXAMINATION TYPE: US venous doppler duplex LE LT DATE OF EXAM: 04/07/2020 12:59 PM COMPARISON: NONE CLINICAL HISTORY: pain, swelling. SIDE PERFORMED: Left TECHNIQUE: The lower extremity deep venous system is examined utilizing real time linear array sonog rylee with graded compression, doppler sonography and color-flow sonography. VESSELS IMAGED: Common Femoral Vein Deep Femoral Vein Greater Saphenous Vein * Femoral Vein Popliteal Vein Small Saphenous Vein * Proximal Calf Veins (* superficial vessels) Left Leg: Negative for DVT IMPRESSION: No evidence of deep vein thrombosis in the left leg.
--- NOTE | 2020-04-07 14:30 | US ---
EXAMINATION TYPE: US liver DATE OF EXAM: 04/07/2020 COMPARISON: NONE CLINICAL HISTORY: Transaminitis. EXAM MEASUREMENTS: Liver Length: 11.6 cm Gallbladder Wall: 0.2 cm CBD: 0.4 cm Right Kidney: 12.9 x 3.6 x 3.3 cm Pancreas: wnl Liver: wnl Gallbladder: No stones seen Evidence for sonographic David's sign: No CBD: wnl Right Kidney: No hydronephrosis or masses seen IMPRESSION: Negative exam. No gallstones or dilated ducts. No focal liver defect.
[2020-04-07 15:09] LABS: Creatine Kinase 30101 U/L (30-135)
[2020-04-07] MEDS ORDERED: ACETAMINOPHEN TAB 325 MG TAB PO PRN (15:30)
[2020-04-07] MEDS ORDERED: NALOXONE 0.4 MG/ML 1 ML VIAL IV PRN (15:30)
[2020-04-07] MEDS: SODIUM CHLORIDE 0.9% 1,000 ML IV SCH ×2 (18:12→21:10)
[2020-04-07] MEDS: diazePAM 5 MG TAB PO SCH ×2 (19:16→21:11)
[2020-04-07] MEDS ORDERED: IBUPROFEN 400 MG TAB PO PRN (19:23)
--- NOTE | 2020-04-07 20:34 | US ---
EXAMINATION TYPE: US venous doppler duplex LE RT DATE OF EXAM: 04/07/2020 8:15 PM COMPARISON: US left leg tp CLINICAL HISTORY: swelling. Left leg swelling with LT venous duplex performed this afternoon on this patient; no right leg swelling is observed; Rhabdomyolysis SIDE PERFORMED: right TECHNIQUE: The lower extremity deep venous system is examined utilizing real time linear array sonog rylee with graded compression, doppler sonography and color-flow sonography. VESSELS IMAGED: Common Femoral Vein Deep Femoral Vein Greater Saphenous Vein * Femoral Vein Popliteal Vein Small Saphenous Vein * Proximal Calf Veins (* superficial vessels) Right Leg: Negative for DVT IMPRESSION: No evidence of deep vein thrombosis in the right leg.
[2020-04-07] MEDS: GABAPENTIN 400 MG CAP PO SCH (21:09)
--- NOTE | 2020-04-07 21:36 | XR ---
EXAMINATION TYPE: XR chest 1V portable DATE OF EXAM: 04/07/2020 COMPARISON: 01/04/2020 HISTORY: Short of breath TECHNIQUE: Single view FINDINGS: There is no heart failure nor confluent pneumonic infiltrate. Heart size is fairly normal. There are no hilar masses. There are chest leads. Bony thorax is intact. IMPRESSION: No active cardiopulmonary disease. No heart failure. No adverse change compared to old ex am. There is apparent clearing of fluid level in the esophagus compared to old exam.
[2020-04-07] MEDS ORDERED: diazePAM 5 MG TAB PO SCH (22:00)
--- NOTE | 2020-04-07 22:04 | HP ---
HISTORY AND PHYSICAL DATE OF SERVICE: 04/07/2020 CHIEF COMPLAINT: High liver enzymes, rhabdomyolysis and swelling of the left leg. HISTORY OF PRESENT ILLNESS: This 59-year-old woman with a past medical history of multiple medical problems, hypertension, history of pulmonary hypertension, generalized anxiety disorder, anxiety, depression, being followed by Dr. Lockett in the outpatient is complaining of pain and swelling of the left leg. The patient is complaining of some weakness and the patient apparently had a fall a few days ago and the patient was unable to get up immediately. Patient was taking Kratom from the gas station. The patient was taken to [facility] and the patient was found to have high creatinine kinase indicating possible rhabdomyolysis. The liver enzymes are also elevated and patient admitted to the hospital for further evaluation and treatment. Left leg was visibly swollen, but however the ultrasound for DVT is negative at this time. There is no history of fever, rigors or chills. No history of headache, loss of consciousness, seizures. Covid 19 rapid test is negative. PAST MEDICAL HISTORY: History of hypertension, pulmonary hypertension, anxiety, depression. MEDICATIONS: Nicotine for 21 days, Zestril, Zoloft, gabapentin, buspirone, atenolol, Valium, Motrin. ALLERGIES: LOMOTIL. Doses reviewed. PHYSICAL EXAM: Patient is alert, oriented x3. The pulse is 51, blood pressure 172/90, respirations 17, temperature 97.8, pulse ox 98% on room air. HEENT is conjunctivae normal. NECK: No JVD. CARDIOVASCULAR: S1, S2 muffled. RESPIRATION: Breath sounds diminished in the bases. No rhonchi. No crackles. ABDOMEN: Soft, nontender. No mass palpable. LEGS: Left leg visibly swollen. Pulses felt normally. No tenderness. NERVOUS SYSTEM: Higher functions as mentioned earlier. Moves all 4 limbs. No focal motor or sensory deficits. LYMPHATICS: No lymph nodes palpable in the neck, axillae or groin. SKIN: No ulcers, rashes or bleeding. JOINTS: No active deforming arthropathy. LABS: CBC within normal limits. AST 653, ALT is 266. Creatinine kinase is 330,101. ASSESSMENT: 1. Acute rhabdomyolysis. 2. Fall and left leg pain. 3. Left leg swelling without any evidence of deep vein thrombosis. 4. Elevated AST/ALT possibly hepatitis. 5. Recent Kratom usage. 6. Hypertension. 7. Pulmonary hypertension. 8. History of hyponatremia. 9. Generalized anxiety. 10.Anxiety, depression. 11.Remote history of nicotine dependence. 12.FULL CODE. RECOMMENDATIONS AND DISCUSSION: In this 59-year-old woman who was admitted with multiple medical problems at this time, we will monitor the patient continuously. Continue with IV fluids. Otherwise, I would also recommend nephrology consultation and I would also recommend a CT scan of the abdomen and pelvis and follow up and serially monitor the creatinine kinase as well as liver enzymes. The patient already had ultrasound of the liver which I reviewed personally that showed no gallstones and no other focal lesions. The overall prognosis guarded because of multiple complex medical issues. I recommended the patient avoid Kratom at this time. The patient understands and agrees. A copy of dictation being forwarded to Dr. Lockett who is the primary physician. MMVALL / IJN: [id number] /
[2020-04-07 23:40] LABS: Hepatitis A Antibody IgM Non-Reactive (Non-Reactive); Hepatitis B Core IgM Non-Reactive (Non-Reactive); Hepatitis B Surface Antigen Non-Reactive (Non-Reactive); Hepatitis C IgG Antibody Non-Reactive (Non-Reactive)
[2020-04-08] MEDS: IOPAMIDOL CONTRAST (ORAL USE) VIAL PO PRN ×2 (07:12→08:02)
[2020-04-08] MEDS: busPIRone HCl 10 MG TAB PO SCH (08:05)
[2020-04-08] MEDS: NICOTINE 21MG/24HR PATCH TRANSDERM SCH (08:05)
[2020-04-08] MEDS: diazePAM 5 MG TAB PO SCH ×3 (08:05→21:57)
[2020-04-08] MEDS: GABAPENTIN 400 MG CAP PO SCH ×3 (08:05→21:57)
[2020-04-08] MEDS: atenoloL 25 MG TAB PO SCH (08:05)
[2020-04-08] MEDS: lisinopriL 20 MG TAB PO SCH (08:05)
[2020-04-08] MEDS: SERTRALINE 100 MG TAB PO SCH (08:05)
[2020-04-08] MEDS: SODIUM CHLORIDE 0.9% 1,000 ML IV SCH ×4 (08:06→21:58)
[2020-04-08 09:12] LABS: Basophils # (A) 0.03 X 10*3/uL (0.00-0.10); Basophils % (A) 0.8 %; Eosinophils # (A) 0.47 X 10*3/uL (0.04-0.35); Eosinophils % (A) 11.9 %; HCT 35.4 % (37.2-46.3); HGB 11.8 g/dL (12.0-15.0); Lymphocytes # (A) 1.71 X 10*3/uL (0.90-5.00); Lymphocytes % (A) 43.2 %; MCH 31.4 pg (27.0-32.0); MCHC 33.3 g/dL (32.0-37.0); MCV 94.1 fL (80.0-97.0); Mean Platelet Volume 10.9 fL (9.5-12.2); Monocytes % (A) 7.6 %; Neutrophils # (A) 1.45 X 10*3/uL (1.80-7.70); Neutrophils % (A) 36.5 %; Platelet Count 183 X 10*3/uL (140-440); RBC 3.76 X 10*6/uL (4.10-5.20); RDW 13.2 % (11.5-14.5); WBC 3.96 X 10*3/uL (4.50-10.00)
--- NOTE | 2020-04-08 09:45 | CT ---
EXAMINATION TYPE: CT abdomen pelvis wo con DATE OF EXAM: 04/08/2020 HISTORY: high liver function CT DLP: 602.4 mGycm. Automated Exposure Control for Dose Reduction was Utilized. TECHNIQUE: CT scan of the abdomen and pelvis is performed with oral but without IV contrast. COMPARISON: Ultrasound liver from yesterday FINDINGS: Within the limitations of a non-contrast study, the following observations are made. LUNG BASES: Left greater than right bibasilar linear scarring and atelectasis. LIVER/GB: Liver is overall normal in size. No concerning solid or cystic mass seen on noncontrast rukhsana ges. Gallbladder appears within normal limits. No biliary dilatation identified. PANCREAS: No significant abnormality is seen. SPLEEN: No significant abnormality is seen. ADRENALS: No significant abnormality is seen. KIDNEYS: No renal stones or hydronephrosis seen bilaterally. BOWEL: Oral contrast reaches proximal transverse colon. Normal contrast-filled appendix in the right upper pelvis. No suspicious small or large bowel dilatation. Evaluation slightly suboptimal inspirati on is a little intra-abdominal fat. GENITAL ORGANS: Anteverted uterus. LYMPH NODES: No greater than 1cm abdominal or pelvic lymph nodes are appreciated. OSSEOUS STRUCTURES: Mild to moderate disc space narrowing and spurring and vacuum disc phenomenon L5- S1 level. Mild axial joint space loss and acetabular spurring in both hips. OTHER: Asymmetric left lower extremity enlargement with moderate ill-defined fluid or subcutaneous ed jose manuel greatest anteriorly and laterally in the visualized left thigh. Findings correlate with recent bi lateral lower extremity studies. No focal fluid collection is seen. IMPRESSION: 1. No suspicious intrahepatic mass or intrahepatic ductal dilatation. 2. Asymmetric left thigh enlargement with moderate subcutaneous edema anteriorly extending laterally versus the opposite right side. No DVT noted on recent ultrasound report. Correlate for soft tissue i nfection/acute cellulitis. There is extension throughout the intramuscular fat planes noted.
[2020-04-08 09:54] LABS: ALT 155 U/L (8-44); AST 375 U/L (13-35); African American GFR (CKD) 114.8 (60.0-200.0); Albumin/Globulin Ratio 1.83 (1.60-3.17); Alkaline Phosphatase 65 U/L (41-126); Calcium 8.1 mg/dL (8.7-10.3); Carbon Dioxide 28.5 mmol/L (21.6-31.8); Chloride 112 mmol/L (96-109); Globulin 1.8 g/dL (1.6-3.3); Glucose 112 mg/dL (70-110); Magnesium 1.3 mg/dL (1.5-2.4); Non-African American GFR(CKD) 99.1 (60.0-200.0); Potassium 3.7 mmol/L (3.5-5.5); Sodium 143 mmol/L (135-145); Total Bilirubin 0.2 mg/dL (0.2-1.2); Total Protein 5.1 g/dL (6.2-8.2)
--- NOTE | 2020-04-08 11:30 | P.NPCON ---
History of Present Illness - Reason for Consult acute renal failure - History of Present Illness Reason for consultation: Rhabdomyolysis History of present illness: Patient is a 59-year-old female seen in consultation for rhabdomyolysis. Patient states that her legs gave out last week and she did crawl on the ground for about 30-40 minutes. Since then her left thigh has been hurting and her left lower extremity has been more swollen. She was noted to have elevated AST and ALT and was advised to go to the hospital. Patient's CK level was 30,101 on admission and is greater than 7800 today. GFR is at baseline. She takes ibuprofen as needed. She denies taking nonsteroidals on a regular basis. She denies the use of a statin. She denies illicit drug abuse. She is currently maintained on normal saline at 1 60 mL an hour. CAT scan of the abdomen and pelvis revealed no evidence of hydronephrosis. Subcutaneous edema of the left eye was noted. No DVT noted. Oral intake fair. No vomiting or diarrhea. No family or personal history of kidney disease. Liver ultrasound revealed no acute abnormal maladies. She does admit to taking herbal supplement Kratom. Vital signs are stable. General: The patient appeared well nourished and normally developed. HEENT: Head exam is unremarkable. Neck is without jugular venous distension. LUNGS: Breath sounds decreased. HEART: Rate and Rhythm are regular. ABDOMEN: Soft, nontender. EXTREMITITES: 1+ edema left lower extremity. No edema in the right lower extremity. Past Medical History Past Medical History: Hypertension Additional Past Medical History / Comment(s): pulmonary htn, generalized anxiety disorder History of Any Multi-Drug Resistant Organisms: None Reported Past Surgical History: Section Past Anesthesia/Blood Transfusion Reactions: No Reported Reaction Past Psychological History: Anxiety, Depression Additional Psychological History / Comment(s): Generalized anxiety disorder Smoking Status: Former smoker Past Alcohol Use History: None Reported Past Drug Use History: None Reported - Past Family History Mother Family Medical History: Hypertension Additional Family Medical History / Comment(s): lived to 84, " from emphysema" Father Family Medical History: CVA/TIA, Dementia, Dialysis, Hypertension Additional Family Medical History / Comment(s): lived to be 86, hypotension Medications and Allergies Home Medications Medication Instructions Recorded Confirmed Type Sertraline HCl [Zoloft] 200 mg PO DAILY 01/19/15 04/07/20 History atenoloL [Atenolol] 25 mg PO DAILY 01/19/15 04/07/20 History Ibuprofen [Motrin] 800 mg PO TID PRN 07/13/17 11/26/18 History lisinopriL [Zestril] 20 mg PO DAILY #30 tab 07/16/17 04/07/20 Rx Diazepam [Valium] 5 mg PO TID 04/07/20 04/07/20 History Gabapentin 400 mg PO BID 04/07/20 04/07/20 History Nicotine 21Mg/24Hr Patch [Habitrol] 1 patch TRANSDERM DAILY 04/07/20 04/07/20 History busPIRone HCL 30 mg PO DAILY 04/07/20 04/07/20 History Allergies Allergy/AdvReac Type Severity Reaction Status Date / Time atropine sulfate Allergy Rash/Hives Verified 04/07/20 18:18 [From Lomotil] diphenoxylate HCl Allergy Rash/Hives Verified 04/07/20 18:18 [From Lomotil] Physical Exam Vitals: Vital Signs Temp Pulse Pulse Resp BP BP Pulse Ox 04/08/20 07:15 17 04/08/20 07:10 97.7 F 58 L 17 165/80 99 04/08/20 02:33 97.7 F 50 L 135/76 94 L 04/07/20 19:06 98.1 F 63 157/67 98 04/07/20 17:45 97.8 F 51 L 17 173/94 98 04/07/20 15:00 57 L 17 162/82 97 04/07/20 12:48 98.6 F 60 18 179/104 98 Intake and Output 04/07/20 04/08/20 04/08/20 22:59 06:59 14:59 Other: Weight 64.41 kg Results - Lab Results Most recent lab results Calcium 8.1 mg/dL (8.7-10.3) L 04/08/20 05:35 Magnesium 1.3 mg/dL (1.5-2.4) L 04/08/20 05:35 04/08/20 05:35 04/08/20 05:35 Assessment and Plan Plan: Assessment: 1. Rhabdomyolysis secondary to trauma from fall/crawling last week for 30-40 minutes in the cold. UA revealed small blood with no evidence of RBCs suggestive of myoglobinuria. No evidence of hydronephrosis. GFR at baseline. 2. Hypomagnesemia from poor intake. 3. Benign hypertension. Stable. 4. Transaminitis. Plan: Maintain normal saline at 160 mL an hour. Repeat CK levels and will ask the lab to quantify. Replace magnesium. 3 g IV today. Avoid nephrotoxins, including nonsteroidals. Avoid use of Kratom. Thank you for the consultation. I will continue to follow the patient with you during her hospital stay.
[2020-04-08] MEDS: MAGNESIUM SULFATE-D5W PMX 1 GM in DEXTROSE/WATER 1 100ML.BAG IVPB SCH ×3 (11:42→13:55)
[2020-04-08 14:10] LABS: Creatine Kinase >7800 U/L (26-186)
--- NOTE | 2020-04-08 19:00 | PN ---
PROGRESS NOTE DATE OF SERVICE: 04/08/2020 This 59-year-old woman who was admitted with acute abdomen also had a fall, and the patient is also complaining of left leg pain and swelling. Multiple consultants are following the patient closely. CT scan of the abdomen and pelvis did not show any acute abnormality at this time. The patient is being closely monitored. After IV fluids, the creatine kinase levels are dropping at this time. Infectious disease evaluation has also been sought because of concerns of cellulitis. Otherwise, the patient had multiple biochemical abnormalities. The creatine kinase is 7800 today. AST and ALT are still elevated. Hepatitis panel is negative. Past medical history reviewed. REVIEW OF SYSTEMS: CARDIOVASCULAR SYSTEM: No angina, palpitations. RESPIRATORY SYSTEM: As mentioned earlier. GI: As mentioned earlier. : No dysuria or retention. NERVOUS SYSTEM: No numbness, weakness. MUSCULOSKELETAL: As mentioned earlier. CURRENT MEDICATIONS: Reviewed. They include Tenormin, BuSpar, Valium, Neurontin, Zestril. Doses are reviewed. PHYSICAL EXAMINATION: Patient alert and oriented x3. Pulse 58, blood pressure 160/80, respiration 17, temperature 97.7, pulse ox 99% on room air. HEENT: Conjunctivae normal. NECK: No jugular venous distention. CARDIOVASCULAR SYSTEM: S1, S2 muffled. RESPIRATORY SYSTEM: Breath sounds diminished at the bases. No rhonchi. No crackles. ABDOMEN: Soft, non-tender. LEGS: Significant pain and swelling of the left leg present. NERVOUS SYSTEM: Higher functions as mentioned earlier. Moves all 4 limbs. No focal motor or sensory deficit. LYMPHATICS: No lymph node palpable in neck, axillae or groin. SKIN: No ulcer, rash, bleeding. JOINTS: No active deforming arthropathy. LABS: WBC 3.2, hemoglobin 11.8. Sodium 143, potassium 3.7. ASSESSMENT: 1. Acute rhabdomyolysis. 2. Fall and left leg pain. 3. Left leg swelling without any evidence of deep venous thrombosis; possibly acute cellulitis. 4. Elevated AST, ALT; possibly hepatitis, acute. 5. Recent kratom usage. 6. Hypertension. 7. Pulmonary hypertension history. 8. History of hyponatremia. 9. Generalized anxiety. 10.Anxiety, depression. 11.Remote history of nicotine dependence. 12.FULL CODE. 13.Gait dysfunction. 14.Mild leukopenia. 15.Mild anemia. RECOMMENDATIONS AND DISCUSSION: In this 59-year-old woman who presented with multiple complex medical issues, we will monitor the patient closely, continue the current medications, continue with symptomatic treatment. Monitor creatinine as well as CK closely. Continue with IV fluids. I would also recommend infectious disease evaluation for possible antibiotic treatment for the left leg swelling. I would also recommend a procalcitonin level. MMODL / IJN: [id number] /
--- NOTE | 2020-04-09 00:30 | CONS ---
CONSULTATION DATE OF SERVICE: 04/08/2020. REASON FOR CONSULTATION: Abnormal CT and question of cellulitis, antibiotic management. HISTORY OF PRESENT ILLNESS: The patient is a 59-year-old female who apparently did have a fall with weakness and unable to get up. The patient has been on her left hip area for a while before she was able to get up and need some help. The patient apparently has been evaluated in the outpatient setting by her primary care physician where the patient was noticed to have elevated liver enzymes for which the patient was sent to the ER. The patient denies having any fever or any chills. The patient denies having any URI symptoms. No chest pain, shortness of breath. No cough. No abdominal pain. Still complaining of pain to the left gluteal and hip/thigh muscle area to be more of a dull aching 3 to 4 out of 10 and no radiation. The patient is currently not having redness. No open wound or any drainage. Patient on presentation to hospital has been afebrile. The patient did have a normal white count with no left shift. She was noticed to have a CK of 30,000. The patient did have hepatitis panel was negative. Coker PCR was negative. The patient did have a venous Doppler, those have been negative for a PE or DVT. The patient did have a CT of abdomen and pelvis with no suspicious intraperitoneal mass or intraperitoneal dilatation. Asymmetric left thigh enlargement with moderate subcutaneous edema interiorly extending laterally no DVT. Correlate for soft tissue infection and cellulitis that has prompted this Infectious Disease consultation. REVIEW OF SYSTEMS: Positive points have been mentioned in HPI. Rest of systems are negative. PAST MEDICAL HISTORY: Hypertension, anxiety, depression. PAST SURGICAL HISTORY: . SOCIAL HISTORY: Currently a smoker. No drinking or drug use. FAMILY HISTORY: Mother history of hypertension. Father history of dementia, CVA, TIA. ALLERGIES: TO ATROPINE, MEDICATIONS: Include the patient is currently on Tenormin, BuSpar, Valium, Neurontin, Zestril, Narcan, nicotine patch, Zoloft and IV fluid. PHYSICAL EXAMINATION: Blood pressure 147/78 with a pulse of 58, temperature 98.1. She is 97% on room air. General description is a middle-aged female lying in bed in no distress. No tachypnea or accessory muscles of respiration use. HEENT: Examination shows slight pallor. No scleral icterus. Oral mucous membranes dry. NECK: Trachea central. No thyromegaly. LUNGS: Unlabored breathing. Clear to auscultation anteriorly. No wheeze or crackles. HEART S1-S2 regular rate and rhythm. ABDOMEN: Soft. No tenderness. No guarding. No rigidity. EXTREMITIES: Examination of the left thigh is no swelling. No redness. No tenderness. Extremities no edema of the feet. NEUROLOGICAL: The patient is awake, alert, oriented x3. Mood and affect normal. LABS: Hemoglobin 11.8, white count 3.96. BUN of 6, creatinine 0.6. DIAGNOSTIC IMPRESSION AND PLAN: Patient admitted to the hospital with abnormal labs in this patient who did have evidence of rhabdomyolysis as the patient has been on her left thigh area for a while before she could get up and the edema seen on the feet is more likely due to rhabdomyolysis and not encephalitis or infection as the patient currently does not have any fever and there is no evidence of any cellulitis locally. PLAN: 1. No need for systemic antibiotic therapy as clinically no evidence of any infection. 2. Management of underlying rhabdomyolysis by Nephrology and admitting team. 3. ID will sign off. Please call back with any questions regarding her infectious disease care. MMODL / IJN: [id number] /
[2020-04-09] MEDS: SODIUM CHLORIDE 0.9% 1,000 ML IV SCH ×3 (04:14→20:45)
[2020-04-09] MEDS: NICOTINE 21MG/24HR PATCH TRANSDERM SCH (09:00)
[2020-04-09] MEDS: busPIRone HCl 10 MG TAB PO SCH (09:01)
[2020-04-09] MEDS: diazePAM 5 MG TAB PO SCH ×3 (09:01→20:46)
[2020-04-09] MEDS: atenoloL 25 MG TAB PO SCH (09:01)
[2020-04-09] MEDS: GABAPENTIN 400 MG CAP PO SCH ×3 (09:01→20:46)
[2020-04-09] MEDS: lisinopriL 20 MG TAB PO SCH (09:02)
[2020-04-09] MEDS: SERTRALINE 100 MG TAB PO SCH (09:02)
[2020-04-09 09:11] LABS: Basophils # (A) 0.04 X 10*3/uL (0.00-0.10); Basophils % (A) 0.9 %; Eosinophils # (A) 0.41 X 10*3/uL (0.04-0.35); Eosinophils % (A) 9.6 %; HCT 35.2 % (37.2-46.3); Lymphocytes # (A) 1.58 X 10*3/uL (0.90-5.00); Lymphocytes % (A) 37.1 %; MCH 31.8 pg (27.0-32.0); MCHC 34.1 g/dL (32.0-37.0); MCV 93.4 fL (80.0-97.0); Monocytes # (A) 0.37 X 10*3/uL (0.20-1.00); Monocytes % (A) 8.7 %; Neutrophils # (A) 1.85 X 10*3/uL (1.80-7.70); Neutrophils % (A) 43.5 %; Platelet Count 193 X 10*3/uL (140-440); RBC 3.77 X 10*6/uL (4.10-5.20); RDW 13.2 % (11.5-14.5); WBC 4.26 X 10*3/uL (4.50-10.00)
[2020-04-09 09:46] LABS: ALT 130 U/L (8-44); AST 249 U/L (13-35); African American GFR (CKD) 108.4 (60.0-200.0); Alkaline Phosphatase 70 U/L (41-126); Calcium 8.4 mg/dL (8.7-10.3); Carbon Dioxide 27.5 mmol/L (21.6-31.8); Chloride 113 mmol/L (96-109); Globulin 2.2 g/dL (1.6-3.3); Glucose 89 mg/dL (70-110); Magnesium 1.5 mg/dL (1.5-2.4); Non-African American GFR(CKD) 93.5 (60.0-200.0); Sodium 145 mmol/L (135-145); Total Bilirubin 0.2 mg/dL (0.2-1.2); Total Protein 5.5 g/dL (6.2-8.2)
[2020-04-09 09:53] LABS: Creatine Kinase >7800 U/L (26-186)
--- NOTE | 2020-04-09 11:35 | P.PN ---
Subjective Patient is seen in follow for rhabdomyolysis. CK levels trending down. Good urine output. Maintain on normal saline. No edema. No chest pain or shortness of breath. Pain in her leg is significantly improved. Vital signs are stable. General: The patient appeared well nourished and normally developed. HEENT: Head exam is unremarkable. Neck is without jugular venous distension. LUNGS: Breath sounds decreased. HEART: Rate and Rhythm are regular. ABDOMEN: Soft, nontender. EXTREMITITES: No edema. Objective - Vital Signs Vital signs: Vital Signs Temp 97.2 F L 04/09/20 08:00 Pulse 54 L 04/09/20 08:00 Resp 18 04/09/20 08:00 BP 180/76 04/09/20 08:00 Pulse Ox 97 04/09/20 08:00 Intake & Output 04/08/20 04/09/20 04/09/20 18:59 06:59 18:59 Other: Voiding Method Toilet # Voids 3 # Bowel Movements 2 - Labs CBC & Chem 7: 04/09/20 05:32 04/09/20 05:32 Labs: Abnormal Lab Results - Last 24 Hours (Table) 04/08/20 04/08/20 04/09/20 Range/Units 05:35 05:35 05:32 WBC 4.26 L (4.50-10.00) X 10*3/uL RBC 3.77 L (4.10-5.20) X 10*6/uL Hct 35.2 L (37.2-46.3) % Eosinophils # 0.41 H (0.04-0.35) X 10*3/uL Chloride (96-109) mmol/L BUN (9.0-27.0) mg/dL BUN/Creatinine Ratio (12.00-20.00) Ratio Calcium (8.7-10.3) mg/dL AST (13-35) U/L ALT (8-44) U/L Creatine Kinase >7800 H* 28226 H* (26-186) U/L Total Protein (6.2-8.2) g/dL Albumin (3.80-4.90) g/dL Albumin/Globulin Ratio (1.60-3.17) g/dL 04/09/20 04/09/20 Range/Units 05:32 05:32 WBC (4.50-10.00) X 10*3/uL RBC (4.10-5.20) X 10*6/uL Hct (37.2-46.3) % Eosinophils # (0.04-0.35) X 10*3/uL Chloride 113 H (96-109) mmol/L BUN 7.0 L (9.0-27.0) mg/dL BUN/Creatinine Ratio 10.00 L (12.00-20.00) Ratio Calcium 8.4 L (8.7-10.3) mg/dL AST 249 H (13-35) U/L ALT 130 H (8-44) U/L Creatine Kinase >7800 H* 78459 H* (26-186) U/L Total Protein 5.5 L (6.2-8.2) g/dL Albumin 3.30 L (3.80-4.90) g/dL Albumin/Globulin Ratio 1.50 L (1.60-3.17) g/dL Assessment and Plan Plan: Assessment: 1. Rhabdomyolysis secondary to trauma from fall/crawling last week for 30-40 minutes in the cold. UA revealed small blood with no evidence of RBCs suggestive of myoglobinuria. No evidence of hydronephrosis. GFR at baseline. CK levels trending down. 2. Hypomagnesemia from poor intake. Improved post replacement. 3. Benign hypertension. Blood pressure on the higher side. 4. Transaminitis. AST and ALT trending down. Plan: Increase normal saline to 200 mL an hour. Repeat CK levels this afternoon and will ask the lab to quantify. Replace magnesium. 2 g IV today. Avoid nephrotoxins, including nonsteroidals. Avoid use of Kratom. Add hydralazine 25 mg 3 times daily.
[2020-04-09] MEDS: MAGNESIUM SULFATE-D5W PMX 1 GM in DEXTROSE/WATER 1 100ML.BAG IVPB SCH ×2 (12:30→14:02)
[2020-04-09] MEDS: hydrALAZINE HCL 25 MG TAB PO SCH ×2 (15:23→20:46)
--- NOTE | 2020-04-09 16:04 | PN ---
PROGRESS NOTE DATE OF SERVICE: 04/09/2020 This 60-year-old woman who was admitted with acute rhabdomyolysis is being closely monitored. The creatine kinase is still elevated at 11,000. Patient is on IV fluids. LFTs are also elevated. No chest pain. No palpitations. No fever. PAST MEDICAL HISTORY: Reviewed. REVIEW OF SYSTEMS: CARDIOVASCULAR SYSTEM: No angina. RESPIRATORY SYSTEM: As mentioned earlier. GI: As mentioned earlier. : No dysuria. NERVOUS SYSTEM: No numbness or weakness. CURRENT MEDICATIONS: Current medications are reviewed and include Tenormin, BuSpar, Valium, Neurontin, Apresoline, Zestril. Doses are reviewed. PHYSICAL EXAMINATION: The patient is alert and oriented x3. Pulse 54 blood pressure 180/76, respiration 18 temp 97.2, pulse ox 97% on room air. HEENT: Conjunctivae normal. NECK: No jugular venous distention. CARDIOVASCULAR: S1, S2 muffled. RESPIRATORY: Breath sounds diminished at the bases. A few scattered rhonchi. ABDOMEN: Soft. NERVOUS SYSTEM: No focal deficits. LEGS: Some pain and swelling of the left leg present. LABS: WBC 4.26, hemoglobin is 12. CK noted. ASSESSMENT: 1. Acute rhabdomyolysis. 2. Fall and left leg pain. 3. Left leg cellulitis without any evidence of deep vein thrombosis, cellulitis, unlikely per Infectious Disease. 4. Elevated AST, ALT; possibly acute hepatitis. 5. Recent kratom usage. 6. Hypertension. 7. Pulmonary hypertension history. 8. History of hyponatremia. 9. Generalized anxiety. 10.Anxiety, depression. 11.Remote history of nicotine dependence. 12.Gait dysfunction. 13.Leukopenia. 14.Mild anemia. 15.FULL CODE. RECOMMENDATIONS AND DISCUSSION: Recommend to continue current medications, continue symptomatic treatment. Otherwise at this time I recommend continue with IV fluids. Monitor CK closely. No need of antibiotics per Infectious Disease. Otherwise, repeat labs. Avoid kratom usage. Prognosis guarded because of multiple complex medical issues. Further recommendations to follow. MMODL / IJN: [id number] /
[2020-04-10] MEDS: SODIUM CHLORIDE 0.9% 1,000 ML IV SCH ×3 (02:06→08:15)
[2020-04-10 07:30] LABS: Basophils # (A) 0.1 k/uL (0-0.2); Basophils % (A) 1 %; Eosinophils # (A) 0.4 k/uL (0-0.7); Eosinophils % (A) 9 %; HCT 41.5 % (34.0-46.0); HGB 13.8 gm/dL (11.4-16.0); Lymphocytes # (A) 1.9 k/uL (1.0-4.8); Lymphocytes % (A) 38 %; MCH 31.5 pg (25.0-35.0); MCHC 33.4 g/dL (31.0-37.0); MCV 94.5 fL (80.0-100.0); Mean Platelet Volume 7.8; Monocytes # (A) 0.2 k/uL (0-1.0); Monocytes % (A) 5 %; Neutrophils # (A) 2.3 k/uL (1.3-7.7); Neutrophils % (A) 46 %; Platelet Count 222 k/uL (150-450); RBC 4.39 m/uL (3.80-5.40); RDW 12.9 % (11.5-15.5)
[2020-04-10 07:40] LABS: ALT 125 U/L (4-34); AST 200 U/L (14-36); African American GFR (CKD) >90 (>60 ml/min/1.73 sqM); Albumin 3.4 g/dL (3.5-5.0); Albumin/Globulin Ratio 1.2; Alkaline Phosphatase 76 U/L (38-126); Anion Gap 5 mmol/L; Blood Urea Nitrogen 6 mg/dL (7-17); Calcium 8.8 mg/dL (8.4-10.2); Carbon Dioxide 29 mmol/L (22-30); Chloride 109 mmol/L (98-107); Globulin 2.8 g/dL; Glucose 92 mg/dL (74-99); Non-African American GFR(CKD) >90 (>60 ml/min/1.73 sqM); Potassium 3.7 mmol/L (3.5-5.1); Sodium 143 mmol/L (137-145); Total Bilirubin 0.3 mg/dL (0.2-1.3); Total Protein 6.2 g/dL (6.3-8.2)
[2020-04-10 07:57] VITALS: PULSE 46; RESP 20; TEMP 97.5
[2020-04-10] MEDS: SERTRALINE 100 MG TAB PO SCH (08:09)
[2020-04-10] MEDS: diazePAM 5 MG TAB PO SCH (08:09)
[2020-04-10] MEDS: GABAPENTIN 400 MG CAP PO SCH (08:09)
[2020-04-10] MEDS: lisinopriL 20 MG TAB PO SCH (08:10)
[2020-04-10] MEDS: NICOTINE 21MG/24HR PATCH TRANSDERM SCH (08:10)
[2020-04-10] MEDS: busPIRone HCl 10 MG TAB PO SCH (08:10)
[2020-04-10] MEDS: atenoloL 25 MG TAB PO SCH (08:10)
[2020-04-10] MEDS: hydrALAZINE HCL 25 MG TAB PO SCH (08:10)
[2020-04-10 09:15] LABS: Creatine Kinase 5544 U/L (30-135)
[2020-04-10 10:32] VITALS: BP 150/83
--- NOTE | 2020-04-10 11:46 | P.PN ---
Subjective Patient is seen in follow for rhabdomyolysis. CK levels trending down. Good urine output. Maintain on normal saline. No edema. No chest pain or shortness of breath. No pain in her leg. Vital signs are stable. General: The patient appeared well nourished and normally developed. HEENT: Head exam is unremarkable. Neck is without jugular venous distension. LUNGS: Breath sounds decreased. HEART: Rate and Rhythm are regular. ABDOMEN: Soft, nontender. EXTREMITITES: No edema. Objective - Vital Signs Vital signs: Vital Signs Temp 97.5 F L 04/10/20 07:56 Pulse 46 L 04/10/20 07:56 Resp 20 04/10/20 07:56 BP 150/83 04/10/20 10:31 Pulse Ox 98 04/10/20 07:56 Intake & Output 04/09/20 04/10/20 04/10/20 18:59 06:59 18:59 Other: Voiding Method Toilet Toilet # Voids 3 - Labs CBC & Chem 7: 04/10/20 06:52 04/10/20 06:52 Labs: Abnormal Lab Results - Last 24 Hours (Table) 04/09/20 04/10/20 Range/Units 16:18 06:52 Chloride 109 H (98-107) mmol/L BUN 6 L (7-17) mg/dL AST 200 H (14-36) U/L ALT 125 H (4-34) U/L Creatine Kinase 9508 H* 5544 H* (30-135) U/L Total Protein 6.2 L (6.3-8.2) g/dL Albumin 3.4 L (3.5-5.0) g/dL Assessment and Plan Plan: Assessment: 1. Rhabdomyolysis secondary to trauma from fall/crawling last week for 30-40 minutes in the cold. UA revealed small blood with no evidence of RBCs suggestive of myoglobinuria. No evidence of hydronephrosis. GFR at baseline. CK levels trending down. 2. Hypomagnesemia from poor intake. Improved post replacement. 3. Benign hypertension. Better controlled today. 4. Transaminitis. AST and ALT trending down. Plan: Maintain normal saline at 200 mL an hour. Avoid nephrotoxins, including nonsteroidals. Avoid use of Kratom. Patient refusing to stay in the hospital. Advised patient to maintain adequate hydration to avoid horseback riding and exercises for the next 2 weeks. Repeat BMP and CK levels 2-3 days post discharge. Follow up outpatient in 1 week.
--- NOTE | 2020-04-11 08:56 | P.DS ---
Providers Date of admission: 04/07/20 15:31 Expected date of discharge: 04/10/20 Attending physician: Jak Allen Consults: 04/07/20 15:31 Consult Physician Routine Consulting Provider: Jorge Velez Consult Reason/Comments: rhabdomyolysis Do you want consulting provider notified?: Yes 04/08/20 12:15 Consult Physician Routine Consulting Provider: Andrés Perez Consult Reason/Comments: Possible antibotic management Do you want consulting provider notified?: Yes Primary care physician: Cathryn Hansen Hospital Course: Final diagnosis Acute rhabdomyolysis Fall and left leg pain Left leg cellulitis without any evidence of deep vein thrombosis, cellulitis, unlikely per infectious disease Elevated AST, ALT, possibly acute hepatitis Recent Kratom usage Hypertension Pulmonary hypertension history History of hyponatremia generalized anxiety anxiety, depression Remote history of nicotine dependence Gait dysfunction Leukopenia Mild anemia Full code Discharge disposition Patient is being discharged in a stable condition with guarded prognosis to home. Patient will follow-up with Dr. Lockett in the outpatient setting upon discharge. Patient is also to follow-up with GI and nephrology as scheduled. Prescription is provided for repeat labs to monitor CK and kidney functions. Total time taken is greater than 35 minutes. Hospital course This is a 60-year-old female who was recently admitted with acute rhabdomyolysis and was being closely monitored. Nephrology following. Patient CK has been trending down and is currently 5000. Repeat labs ordered for outpatient in 2-3 days. Patient will follow-up with nephrology in the outpatient setting. Patient also instructed to follow-up with primary care provider upon discharge. Continue to encourage oral intake and avoid taking any [id number] herbal supplements without discussing with primary care provider. Currently no reports of chest pain, shortness of breath, or palpitations. Patient is afebrile. No reports of nausea or vomiting and patient is tolerating diet. Patient will be discharged home today. On exam vital signs are stable. Cardio S1, S2 are muffled. Respiratory system shows diminished breath sounds at the bases with no wheezing or rhonchi noted. Abdomen is soft and nontender. Nervous system shows no focal deficits. Please refer to medication reconciliation sheet for a list of medications. Patient Condition at Discharge: Stable Plan - Discharge Summary Discharge Rx Participant: No New Discharge Prescriptions: New hydrALAZINE HCL [Apresoline] 25 mg PO TID 30 Days #90 tab Continue Sertraline HCl [Zoloft] 200 mg PO DAILY atenoloL [Atenolol] 25 mg PO DAILY lisinopriL [Zestril] 20 mg PO DAILY #30 tab busPIRone HCL 30 mg PO DAILY Diazepam [Valium] 5 mg PO TID Nicotine 21Mg/24Hr Patch [Habitrol] 1 patch TRANSDERM DAILY Changed Gabapentin 400 mg PO TID #0 Discontinued Ibuprofen [Motrin] 800 mg PO TID PRN PRN Reason: Pain Discharge Medication List Sertraline HCl [Zoloft] 200 mg PO DAILY 01/19/15 [History] atenoloL [Atenolol] 25 mg PO DAILY 01/19/15 [History] lisinopriL [Zestril] 20 mg PO DAILY #30 tab 07/16/17 [Rx] Diazepam [Valium] 5 mg PO TID 04/07/20 [History] Nicotine 21Mg/24Hr Patch [Habitrol] 1 patch TRANSDERM DAILY 04/07/20 [History] busPIRone HCL 30 mg PO DAILY 04/07/20 [History] Gabapentin 400 mg PO TID #0 04/10/20 [Rx] hydrALAZINE HCL [Apresoline] 25 mg PO TID 30 Days #90 tab 04/10/20 [Rx] Follow up Appointment(s)/Referral(s): Jade Lockett MD [Primary Care Provider] - 04/17/20 9:20 am Jorge Velez DO [STAFF PHYSICIAN] - 1 Week (Please call for appointment. Thank you,) Mich Parham MD [STAFF PHYSICIAN] - 04/18/20 8:45 am Ambulatory/Diagnostic Orders: Comprehensive Metabolic Panel [LAB.AMB] Time Frame: 3 Days, Location: None Selected Patient Instructions/Handouts: Abdominal Pain (ED) Activity/Diet/Wound Care/Special Instructions: Please avoid use of Kratom, alcohol, Tylenol . Please return to the Emergency Department if symptoms worsen or any other concerns. Activity Limited until follow-up continue current diet encourage fluids follow up with pcp, nephrology outpatient repeat labs in 2-3 days to monitor CK Discharge/Stand Alone Forms: Work/School Release Discharge Disposition: HOME SELF-CARE
== END 2020-04-10 12:31 | disposition home or self-care (01) | DRG 565 ==
LOC: EC 12:39 → 4SSUR 15:31
PROVIDERS: ADMIT Hospitalist; ATTEND Hospitalist
DX: T79.6XXA Traumatic ischemia of muscle, initial encounter (principal); B17.9 Acute viral hepatitis, unspecified; W19.XXXA Unspecified fall, initial encounter; I10 Essential (primary) hypertension; I27.20 Pulmonary hypertension, unspecified; F41.1 Generalized anxiety disorder; F32.9 Major depressive disorder, single episode, unspecified; F17.200 Nicotine dependence, unspecified, uncomplicated; E83.42 Hypomagnesemia; R74.01 Elevation of levels of liver transaminase levels; R26.9 Unspecified abnormalities of gait and mobility; D72.819 Decreased white blood cell count, unspecified; D64.9 Anemia, unspecified; Z20.822 Contact with and (suspected) exposure to COVID-19
CPT/HCPCS: 36415; 71045; 74176; 76705; 80053; 80074; 81001; 82150; 82550; 83605; 83690; 83735; 84145; 85025; 85610; 85652; 85730; 86140; 87635; 96360; 96361; 99285

== ENCOUNTER → 2020-04-13 | Outpatient (CLI) | payer OTHER ==
[2020-04-13 12:59] LABS: ALT 89 U/L (4-34); AST 84 U/L (14-36); African American GFR (CKD) >90 (>60 ml/min/1.73 sqM); Albumin/Globulin Ratio 1.4; Alkaline Phosphatase 88 U/L (38-126); Anion Gap 6 mmol/L; Blood Urea Nitrogen 10 mg/dL (7-17); Calcium 9.2 mg/dL (8.4-10.2); Carbon Dioxide 30 mmol/L (22-30); Chloride 101 mmol/L (98-107); Globulin 2.8 g/dL; Glucose 86 mg/dL (74-99); Non-African American GFR(CKD) >90 (>60 ml/min/1.73 sqM); Potassium 4.2 mmol/L (3.5-5.1); Sodium 137 mmol/L (137-145); Total Bilirubin 0.3 mg/dL (0.2-1.3); Total Protein 6.8 g/dL (6.3-8.2)
[2020-04-13 13:00] LABS: Creatine Kinase 1022 U/L (30-135)
[2020-04-13 13:29] LABS: Creatine Kinase MB 3.3 ng/mL (0.0-2.4); Troponin I <0.012 ng/mL (0.000-0.034)
== END | disposition home or self-care (01) ==
LOC: LABMAIN 12:15
PROVIDERS: ATTEND Family Medicine
DX: M62.82 Rhabdomyolysis (principal)
CPT/HCPCS: 36415; 80053; 82550; 82553; 84484

== ENCOUNTER → 2020-08-14 | Outpatient (CLI) | payer OTHER ==
[2020-08-14 18:25] LABS: HCT 37.3 % (37.2-46.3); HGB 12.7 g/dL (12.0-15.0); MCH 32.6 pg (27.0-32.0); MCV 95.9 fL (80.0-97.0); Mean Platelet Volume 10.4 fL (9.5-12.2); Platelet Count 187 X 10*3/uL (140-440); RBC 3.89 X 10*6/uL (4.10-5.20); RDW 12.7 % (11.5-14.5)
[2020-08-14 20:12] LABS: Erythrocyte Sedimentation Rate 15 mm/Hr (0-30)
[2020-08-14 21:40] LABS: African American GFR (CKD) 92.2 (60.0-200.0); Albumin 4.2 g/dL (3.80-4.90); Albumin/Globulin Ratio 1.68 (1.60-3.17); Anion Gap 4.8 mmol/L (4.00-12.00); BUN/Creat Ratio 21.25 Ratio (12.00-20.00); Carbon Dioxide 28.2 mmol/L (21.6-31.8); Chol/HDL Ratio 3.51; Globulin 2.5 g/dL (1.6-3.3); LDL Cholesterol,Calculated 115.6 mg/dL (0.0-131.0); Non-African American GFR(CKD) 79.6 (60.0-200.0); Potassium 4.5 mmol/L (3.5-5.5); Total Bilirubin 0.3 mg/dL (0.3-1.2); Total Protein 6.7 g/dL (6.2-8.2); VLDL Calculation 17.4 mg/dL (5.00-40.00)
[2020-08-14 22:53] LABS: T4, Free (Free Thyroxine) 0.7 ng/dL (0.80-1.80)
== END | disposition home or self-care (01) ==
LOC: LABWHC1 12:07
PROVIDERS: ATTEND Psychiatry & Neurology Psychiatry
DX: E03.9 Hypothyroidism, unspecified (principal); F31.60 Bipolar disorder, current episode mixed, unspecified; Z79.899 Other long term (current) drug therapy
CPT/HCPCS: 36415; 80053; 80061; 84439; 84443; 84481; 85027; 85652

== ENCOUNTER → 2021-04-17 | Outpatient (CLI) | payer OTHER ==
[2021-04-17 23:26] LABS: Basophils # (A) 0.04 X 10*3/uL (0.00-0.10); Basophils % (A) 0.8 %; Eosinophils # (A) 0.16 X 10*3/uL (0.04-0.35); Eosinophils % (A) 3.3 %; HCT 37.3 % (37.2-46.3); HGB 12.6 g/dL (12.0-15.0); Immature Grans, Automated 0.2 %; Lymphocytes # (A) 1.58 X 10*3/uL (0.90-5.00); Lymphocytes % (A) 32.9 %; MCH 32.2 pg (27.0-32.0); MCHC 33.8 g/dL (32.0-37.0); MCV 95.4 fL (80.0-97.0); Mean Platelet Volume 11.3 fL (9.5-12.2); Monocytes # (A) 0.23 X 10*3/uL (0.20-1.00); Monocytes % (A) 4.8 %; NRBC Per 100 WBC 0 /100 WBCS (0.0-0.0); Neutrophils # (A) 2.78 X 10*3/uL (1.80-7.70); Platelet Count 183 X 10*3/uL (140-440); RBC 3.91 X 10*6/uL (4.10-5.20); RDW 13.2 % (11.5-14.5)
[2021-04-18 00:14] LABS: Erythrocyte Sedimentation Rate 8 mm/Hr (0-30)
[2021-04-18 02:43] LABS: C Reactive Protein <0.30 mg/dL (0.00-0.80); Iron 74 ug/dL (50-170)
[2021-04-18 02:54] LABS: ALT 15 U/L (8-44); AST 19 U/L (13-35); African American GFR (CKD) 66.7 (60.0-200.0); Albumin 3.9 g/dL (3.8-4.9); Albumin/Globulin Ratio 1.49 (1.60-3.17); Alkaline Phosphatase 73 U/L (41-126); BUN/Creat Ratio 13.75 Ratio (12.00-20.00); Blood Urea Nitrogen 14.3 mg/dL (9.0-27.0); Calcium 9.2 mg/dL (8.7-10.3); Carbon Dioxide 20.9 mmol/L (20.0-27.5); Chloride 105 mmol/L (96-109); Globulin 2.6 g/dL (1.6-3.3); Glucose 112 mg/dL (70-110); Non-African American GFR(CKD) 57.5 (60.0-200.0); Potassium 4.3 mmol/L (3.5-5.5); Sodium 139 mmol/L (135-145); Total Bilirubin <0.15 mg/dL (0.30-1.20); Total Protein 6.6 g/dL (6.2-8.2)
== END | disposition home or self-care (01) ==
LOC: LABWHC1 14:54
PROVIDERS: ATTEND Psychiatry & Neurology Psychiatry
DX: D64.9 Anemia, unspecified (principal)
CPT/HCPCS: 36415; 80053; 82607; 83540; 85025; 85652; 86140

== ENCOUNTER → 2023-08-13 | Outpatient (CLI) | payer OTHER ==
--- NOTE | 2023-08-13 11:04 | CA ---
Transthoracic Echo Report Name: Heidy Dee Age: 63 Gender: F : 1960 Exam Date: 08/13/2023 08:39 Exam Location: [place] [facility] Ht (in): 62 Wt (lb): 165 Ordering Physician: Meño Cartagena MD Attending/Referring Phys: Osiel SANTO District Service Manager Pamela Raines RDCS Procedure CPT: Indications: I27.20,R07.9,R06.02 SHORTNESS OF BREATH Cardiac Hx: Technical Quality: Good Contrast 1: Total Dose (mL): Contrast 2: Total Dose (mL): MEASUREMENTS (Male / Female) Normal Values 2D ECHO LV Diastolic Diameter PLAX 4.5 cm 4.2 - 5.9 / 3.9 - 5.3 cm LV Systolic Diameter PLAX 3.0 cm IVS Diastolic Thickness 0.9 cm 0.6 - 1.0 / 0.6 - 0.9 cm LVPW Diastolic Thickness 0.9 cm 0.6 - 1.0 / 0.6 - 0.9 cm LV Relative Wall Thickness 0.4 RV Internal Dim ED PLAX 3.4 cm LVOT Diameter 2.1 cm LV Diastolic Volume MOD BP 104.3 cm??? 67 - 155 / 56 - 104 cm??? LV Systolic Volume MOD BP 37.8 cm??? 22 - 58 / 19 - 49 cm??? LV Ejection Fraction MOD BP 63.8 % >= 55 % LV Cardiac Index MOD BP 1847.9 cm???/min???m??? LV Diastolic Volume MOD 4C 106.7 cm??? LV Systolic Volume MOD 4C 36.5 cm??? LV Ejection Fraction MOD 4C 65.8 % LV Cardiac Index MOD 4C 1951.4 cm???/min???m??? LV Diastolic Length 4C 7.8 cm LV Systolic Length 4C 6.3 cm LV Diastolic Volume MOD 2C 102.2 cm??? LV Systolic Volume MOD 2C 38.6 cm??? LV Ejection Fraction MOD 2C 62.2 % LV Cardiac Index MOD 2C 1766.1 cm???/min???m??? LV Diastolic Length 2C 7.8 cm LV Systolic Length 2C 6.1 cm LA Volume 86.4 cm??? 18 - 58 / 22 - 52 cm??? LA Volume Index 47.1 cm???/m??? 16 - 28 cm???/m??? Ascending Aorta Diameter 3.8 cm DOPPLER AV Peak Velocity 140.9 cm/s AV Peak Gradient 7.9 mmHg AV Mean Velocity 95.1 cm/s AV Mean Gradient 4.1 mmHg AV Velocity Time Integral 34.7 cm LVOT Peak Velocity 120.9 cm/s LVOT Peak Gradient 5.8 mmHg LVOT Velocity Time Integral 28.4 cm LVOT Stroke Volume 101.5 cm??? LVOT Stroke Volume Index 57.6 ml/m??? LVOT Cardiac Index 2819.3 cm???/min???m??? AV Area Cont Eq vti 2.9 cm??? AV Area Cont Eq pk 3.1 cm??? MV Area PHT 4.8 cm??? Mitral E Point Velocity 64.3 cm/s Mitral A Point Velocity 66.1 cm/s Mitral E to A Ratio 1.0 MV Deceleration Time 158.0 ms TR Peak Velocity 250.4 cm/s TR Peak Gradient 25.1 mmHg Right Atrial Pressure 5.0 mmHg Pulmonary Artery Systolic Pressu 30.1 mmHg Right Ventricular Systolic Press 30.1 mmHg PV Peak Velocity 68.2 cm/s PV Peak Gradient 1.9 mmHg FINDINGS Left Ventricle Left ventricular ejection fraction is estimated at 55-60 %. Left ventricular cavity size normal. Left ventricular wall thickness normal. No obvious regional wall motion abnormalities. Right Ventricle Normal right ventricular size and function. Right ventricular systolic pressure within normal limits. Right Atrium Right atrial dilatation. Left Atrium Severely increased left atrial volume. Mildly increased left atrial area. Mitral Valve Structurally normal mitral valve. No evidence for mitral valve prolapse. No mitral stenosis. Mild to moderate mitral regurgitation. Aortic Valve Trileaflet aortic valve. Aortic valve sclerosis. No aortic valve stenosis or regurgitation. Tricuspid Valve Structurally normal tricuspid valve. No tricuspid stenosis.[id number] tricuspid regurgitation. Pulmonic Valve Structurally normal pulmonic valve. No pulmonic stenosis. Pericardium No pericardial effusion. Aorta Normal size aortic root and proximal ascending aorta. CONCLUSIONS 1. Normal left ventricular size and systolic function 2. Mild to moderate mitral and tricuspid regurgitation with no evidence of pulmonary hypertension Previewed by: Dr. Jim Renee MD (Electronically Signed) Final Date: 13 August 2023 11:03
== END | disposition home or self-care (01) ==
LOC: RADECHMAIN 08:18
PROVIDERS: ATTEND Family Medicine
DX: I27.20 Pulmonary hypertension, unspecified (principal); R07.9 Chest pain, unspecified; R06.02 Shortness of breath; I08.1 Rheumatic disorders of both mitral and tricuspid valves
CPT/HCPCS: 93306